=== PATIENT | female | born 1945 | race Caucasian/White ===

== ENCOUNTER → 2017-12-21 16:35 | Outpatient (CLI) | payer MEDICARE, OTHER, SELFPAY ==
--- NOTE | 2017-12-21 16:44 | XR_ITS ---
XR chest 2V HISTORY: Persistent cough ORDERING PHYSICIAN: Nallely Hankins PATIENT AGE: 72 years COMPARISON: 05/14/2014 FINDINGS: The cardiomediastinal silhouette and pulmonary vascularity are within normal limits. The lungs are clear without infiltrates, suspicious nodules, or pleural effusions. No acute bony abnormalities. IMPRESSION: Negative chest, no acute finding
== END ==
PROVIDERS: PCP Internal Medicine Adolescent Medicine; Visit Provider Nurse Practitioner Family
DX: R05 Cough (principal)
CPT/HCPCS: 71046

== ENCOUNTER → 2018-06-15 11:58 | Outpatient (CLI) | payer MEDICARE, OTHER, SELFPAY ==
[2018-06-15 14:07] LABS: Blood Urea Nitrogen 20 mg/dL (7-18); Creatinine,Serum 0.58 mg/dL (0.55-1.02); Estimated Glomerular Filt Rate 103 ml/min (>60); GFR (African American) 124 ML/MIN (>60)
== END ==
PROVIDERS: PCP Internal Medicine Adolescent Medicine; Visit Provider Nurse Practitioner Family
DX: R29.6 Repeated falls (principal)
CPT/HCPCS: 36415; 82565; 84520

== ENCOUNTER → 2018-06-21 09:15 | Outpatient (CLI) | payer MEDICARE, OTHER, SELFPAY ==
--- NOTE | 2018-06-21 09:25 | CI_ITS ---
Cerebrovascular Exam IMPRESSIONS 1. The bilateral vertebral arteries are patent with normal antegrade flow. 2. Study suggests less than 20% stenosis involving the right internal carotid artery and the left internal carotid artery. History: Transient ischemic attack. Carotid duplex study. Complete study and Doppler flow study including spectral analysis, color and bower scale imaging. Location: Vascular laboratory. Patient status: Outpatient. Tables: Arterial flow: + +--------+--------+ Location V sys V ed + +--------+--------+ Right CCA - proximal 85.2cm/s 23.7cm/s + +--------+--------+ Right CCA - distal 76.1cm/s 23.7cm/s + +--------+--------+ Right ECA 60.9cm/s -------- + +--------+--------+ Right ICA - proximal 53.8cm/s 20.3cm/s + +--------+--------+ Right ICA - mid 99.2cm/s 34.2cm/s + +--------+--------+ Right ICA - distal 91.5cm/s 32.1cm/s + +--------+--------+ Right vertebral 46.2cm/s -------- + +--------+--------+ Left CCA - proximal 85cm/s 23.6cm/s + +--------+--------+ Left CCA - distal 81.5cm/s 21.1cm/s + +--------+--------+ Left ECA 75.5cm/s -------- + +--------+--------+ Left ICA - proximal 52.1cm/s 24.6cm/s + +--------+--------+ Left ICA - mid 74.6cm/s 32.9cm/s + +--------+--------+ Left ICA - distal 63.1cm/s 24.6cm/s + +--------+--------+ Left vertebral 49.1cm/s -------- + +--------+--------+ Velocity ratios: + + + + + + Right, V sys Right, V ed Left, V sys Left, V ed + + + + + + Max ICA/dist CCA 1.3 1.44 0.92 1.56 + + + + + + (Report amended ) Electronically signed by: Wilbur Tomas [id number]
--- NOTE | 2018-06-21 09:56 | MR_ITS ---
MR head/brain wo/w con HISTORY: Headache with left leg weakness, history of stroke ITS.REASON: TIA, LOSS OF BALANCE ORDERING PHYSICIAN: Nallely Hankins PATIENT AGE: 72 years Comparison: 07/02/2016 TECHNIQUE: Standard multiplanar multiecho sequences are performed without and with gadolinium enhancement. FINDINGS: No midline shift, mass effect, intracranial hemorrhage, or hydrocephalus is evident. Encephalomalacic changes are present in the right parietal occipital temporal junction consistent with an old area of infarction. No evidence of acute infarction. No enhancing lesions. No intra or extra-axial mass is evident. There are a few periventricular and subcortical T2 white matter hyperintensities consistent with ischemic gliotic change from microvascular disease. There is a 6 mm T2 white matter hyperintensity in the left prior lobe deep white matter. This shows slight increased diffusion signal but also show slight increase ADC signal with some minimal contrast enhancement suggesting a late subacute small area of infarction The cerebellopontine angles, cerebellum, and brainstem are unremarkable. There is a small cystic area in the left subinsular region at 8 mm consistent with either a dilated perivascular space or a choroidal fissure cyst or possibly old lacunar infarction. The pituitary and optic chiasm have an unremarkable appearance. No mastoid effusion or sinus air-fluid level is evident. IMPRESSION: 1. Chronic ischemic changes with encephalomalacia change in the right parietal occipital temporal junction suggesting old infarction. 2. Suspect a small late subacute white matter infarction in the left parietal lobe. 3. No acute findings. 1.
--- NOTE | 2018-06-21 11:03 | HMH.ITSHM ---
JUAN FCORT ELLISON
== END ==
PROVIDERS: Family Provider Internal Medicine Adolescent Medicine; PCP Internal Medicine Adolescent Medicine; Visit Provider Nurse Practitioner Family
DX: G45.8 Other transient cerebral ischemic attacks and related syndromes (principal); R26.89 Other abnormalities of gait and mobility; R29.898 Other symptoms and signs involving the musculoskeletal system
CPT/HCPCS: 70553; 93880; A9576

== ENCOUNTER 2018-11-03 10:30 | Outpatient (RCR) | payer MEDICARE, OTHER, SELFPAY | END 2018-11-03 10:35 | disposition home or self-care (01) | LOC: PT 10:30 | PROVIDERS: Visit Provider Internal Medicine Adolescent Medicine | DX: R26.81 Unsteadiness on feet (principal); M25.512 Pain in left shoulder; M75.102 Unspecified rotator cuff tear or rupture of left shoulder, not specified as traumatic; W19.XXXA Unspecified fall, initial encounter | CPT/HCPCS: 97010; 97014; 97110; 97112; 97163; 97535; G0283 ==

== ENCOUNTER → 2019-03-20 11:18 | Outpatient (CLI) | payer MEDICARE, OTHER, SELFPAY ==
--- NOTE | 2019-03-20 11:38 | XR_ITS ---
EXAM: XR lumbar spine min 4V HISTORY: ITS.REASON: MECHANICAL LOW BACK PAIN ORDERING PHYSICIAN: Adeel Gomez MD PATIENT AGE: 73 years COMPARISON: None FINDINGS: Normal alignment. No fracture or dislocation. No lytic or blastic change. Bone density is mildly osteopenia. Vertebral body heights are normal. There is severe loss of disc space height with vacuum disc changes L2-3 through L4-5 disc levels with small marginal spurs. There is narrowing of facet joint spaces bilaterally at L4-5 and L5-S1 greater on the right side. There is a post cholecystectomy clip in right upper quadrant of the abdomen. IMPRESSION: No acute process. Levels of chronic degenerative disc disease as described. L4-5 bilateral arthrosis greater on the right.
--- NOTE | 2019-03-20 11:38 | XR_ITS ---
XR hip LT 2-3V w/pelvis HISTORY: ITS.REASON: LT HIP PAIN ORDERING PHYSICIAN: Adeel Gomez MD PATIENT AGE: 73 years COMPARISON: None FINDINGS: Moderate intensity, alignment and joint spaces are normal. There is a 5 mm spur from the inferior left greater trochanteric area. There is no acute fracture. There are pelvic phleboliths. Also noted is severe loss of disc space height with a left-sided spur at L4-L5 lumbar level. IMPRESSION: No acute process. Left femoral greater trochanteric spur. L4-5 chronic intervertebral osteochondrosis.
== END ==
PROVIDERS: PCP Internal Medicine Adolescent Medicine; Visit Provider Internal Medicine Adolescent Medicine
DX: M54.5 Low back pain (principal); M25.552 Pain in left hip
CPT/HCPCS: 72110; 73502

== ENCOUNTER → 2019-04-18 11:27 | Outpatient (CLI) | payer MEDICARE, OTHER, SELFPAY ==
--- NOTE | 2019-04-18 11:31 | MM_ITS ---
MM Dig screening mamm BI w/CAD ORDERING PHYSICIAN : Adeel Gomez MD PATIENT AGE: 73 years GENDER: Female COMPARISON: March 2014, June 2016, January 2013 INDICATION: Routine screening mammogram 73-year-old. No hormones no new complaints Family history. Paternal aunt with breast cancer postmenopausal TECHNIQUE: Standard CC and MLO images were obtained. R2 CAD reviewed. FINDINGS: Minimal residual [place] plantar elements with Generalized fatty replacement. No focal area of concern. No dominant or suspicious mass. No suspicious calcifications. . Bilateral follow-up in one year adequate . IMPRESSION: Stable bilateral mammogram. No new areas of concern. Lower density breast. BI-RADS Category: 1 Negative RECOMMENDED FOLLOW-UP: 1YR 1 YEAR FOLLOW-UP (A letter has been sent to the patient regarding results of the study.)
== END ==
PROVIDERS: PCP Internal Medicine Adolescent Medicine; Visit Provider Internal Medicine Adolescent Medicine
DX: Z12.31 Encounter for screening mammogram for malignant neoplasm of breast (principal)
CPT/HCPCS: 77067

== ENCOUNTER → 2019-05-04 09:44 | Outpatient (CLI) | payer MEDICARE, OTHER, SELFPAY ==
[2019-05-04 12:35] LABS: Ferritin 24 ng/mL (8-388)
== END ==
PROVIDERS: Visit Provider Nurse Practitioner Family
DX: G47.33 Obstructive sleep apnea (adult) (pediatric) (principal); E83.10 Disorder of iron metabolism, unspecified; G25.81 Restless legs syndrome
CPT/HCPCS: 36415; 82728; 94762

== ENCOUNTER → 2019-05-04 10:09 | Outpatient (CLI) | payer MEDICARE, OTHER, SELFPAY | PROVIDERS: Visit Provider Nurse Practitioner Family | DX: E83.10 Disorder of iron metabolism, unspecified (principal) | CPT/HCPCS: 36415; 82728 ==

== ENCOUNTER 2019-11-01 10:00 | Outpatient (RCR) | payer MEDICARE, OTHER, SELFPAY | END 2019-11-01 10:05 | disposition home or self-care (01) | LOC: PT 10:00 | PROVIDERS: Visit Provider Psychiatry & Neurology Neurology | DX: R26.81 Unsteadiness on feet (principal); M48.00 Spinal stenosis, site unspecified | CPT/HCPCS: 97010; 97014; 97110; 97112; 97163; 97164; G0283 ==

== ENCOUNTER → 2019-12-02 08:31 | Outpatient (CLI) | payer MEDICARE, OTHER, SELFPAY ==
[2019-12-02 09:56] LABS: Basophils # 0.1 K/mm3 (0-0.2); Basophils % 1.3 % (0.1-2.0); Eosinophils # 0.1 K/mm3 (0.0-0.4); Eosinophils % 2.3 % (0.1-12.0); Hematocrit 42.2 % (37.0-47.0); Lymphocytes # 1.2 K/mm3 (0.7-4.5); Lymphocytes % 27.1 % (10-50); Mean Corpuscular HGB Conc 33.1 g/dL (31.8-35.4); Mean Corpuscular Hemoglobin 29.9 pg (27.0-31.2); Mean Corpuscular Volume 90.3 fl (81-99); Mean Platelet Volume 7.6 fl (7.4-10.4); Monocytes # 0.3 K/mm3 (0.1-1.0); Monocytes % 7.2 % (1.7-9.3); Neutrophils # 2.7 K/mm3 (1.8-7.8); Neutrophils % 62.2 % (37.0-80.0); Platelet Count 262 K/mm3 (142-424); Red Blood Count 4.68 M/mm3 (4.20-5.40); Red Cell Distribution Width 12.7 % (11.5-17.5); White Blood Count 4.3 K/mm3 (4.8-10.8)
[2019-12-02 11:18] LABS: Alanine Aminotransferase 19 U/L (12-78); Albumin Level 4.2 g/dl (3.5-5.0); Albumin/Globulin Ratio 1.6 (1.1-1.8); Alkaline Phosphatase 72 U/L (38-126); Anion Gap 11.4 mEq/L (5-15); Aspartate Amino Transferase 25 U/L (14-36); Bilirubin,Total 0.5 mg/dl (0.2-1.3); Blood Urea Nitrogen 18 mg/dl (7-17); Calcium 9.2 mg/dl (8.4-10.2); Carbon Dioxide 26 mmol/L (22.0-30.0); Chloride 105 mmol/L (98-107); Cholesterol 151 mg/dl (140-200); Estimated Glomerular Filt Rate 121 ml/min (>60); GFR (African American) 147 ML/MIN (>60); Globulin 2.6 g/dL (1.3-3.2); Glucose 93 mg/dl (74-100); HDL Cholesterol 51 mg/dl (40-60); Potassium 4.4 mmoL/L (3.5-5.1); Sodium 138 mmol/L (136-145); Total Protein,Serum 6.8 g/dl (6.3-8.2); Triglycerides 67 mg/dl (30-150); VLDL Cholesterol 13 mg/dL (0-40)
[2019-12-02 11:29] LABS: Direct LDL Cholesterol 82.36 mg/dL (100-129)
== END ==
PROVIDERS: Visit Provider Internal Medicine Adolescent Medicine
DX: E78.5 Hyperlipidemia, unspecified (principal)
CPT/HCPCS: 36415; 80053; 80061; 85025

== ENCOUNTER → 2019-12-18 08:52 | Outpatient (CLI) | payer MEDICARE, OTHER, SELFPAY ==
--- NOTE | 2019-12-18 09:03 | CT_ITS ---
PROCEDURE: CT ABDOMEN PELVIS W CON CLINICAL INDICATION: RLQ PAIN Right lower quadrant pain COMPARISON: CXR2V XR chest 2V from 12/21/2017 TECHNIQUE: IV Contrast: 75ML OPTIRAY 350 Oral Contrast none Axial images obtained with sagittal and coronal reformats. All CT scans at the facility use one or more dose reduction, viz: automated exposure control, ma/kV adjustment per patient size (including targeted exams where dose is matched to indication, i.e. head), or iterative reconstruction technique. FINDINGS: LOWER THORAX: No acute finding. Nonspecific calcification is noted between the right left atrium. ABDOMEN & PELVIS: There has been a prior cholecystectomy. The liver, spleen, adrenal glands, pancreas, and kidneys have an unremarkable appearance. No intestinal obstruction or free air. No evidence of appendicitis or diverticulitis. There is lobular increased soft tissue density along the posterior and right aspect of the retroverted uterus. This area measures approximately 4 cm suggesting a fibroid. There are degenerative changes in the lumbar spine. IMPRESSION: 1. No acute finding. 2. Fibroid involvement of the uterus which may be confirmed with ultrasound Dictated by: Wilbur Tomas MD 12/19/2019 10:26 Electronically signed by Wilbur Tomas MD in [place] 12/19/2019 10:26
[2019-12-18 09:23] LABS: Blood Urea Nitrogen 18 mg/dl (7-17)
[2019-12-18 09:24] LABS: Estimated Glomerular Filt Rate 98 ml/min (>60); GFR (African American) 119 ML/MIN (>60)
== END ==
PROVIDERS: PCP Internal Medicine Adolescent Medicine; Visit Provider Obstetrics & Gynecology Gynecology
DX: R10.31 Right lower quadrant pain (principal)
CPT/HCPCS: 36415; 74177; 82565; 84520; Q9967

== ENCOUNTER → 2020-09-13 08:22 | Outpatient (CLI) | payer MEDICARE, OTHER, SELFPAY ==
[2020-09-13 10:12] LABS: Chloride 105 mmol/L (98-107); Sodium 141 mmol/L (136-145)
[2020-09-13 10:13] LABS: Potassium 4.3 mmoL/L (3.5-5.1)
[2020-09-13 10:15] LABS: Alanine Aminotransferase 22 U/L (12-78); Alkaline Phosphatase 87 U/L (38-126); Anion Gap 11.3 mEq/L (5-15); Aspartate Amino Transferase 29 U/L (14-36); Bilirubin,Total 0.7 mg/dl (0.2-1.3); Blood Urea Nitrogen 23 mg/dl (7-17); Carbon Dioxide 29 mmol/L (22.0-30.0); Cholesterol 162 mg/dl (140-200); Estimated Glomerular Filt Rate 82 ml/min (>60); GFR (African American) 99 ML/MIN (>60); Triglycerides 79 mg/dl (30-150); VLDL Cholesterol 16 mg/dL (0-40)
[2020-09-13 10:16] LABS: Albumin Level 4.3 g/dl (3.5-5.0); Albumin/Globulin Ratio 1.5 (1.1-1.8); Calcium 9.5 mg/dl (8.4-10.2); Chol/HDL Ratio 3.1 (1-3.5); Globulin 2.8 g/dL (1.3-3.2); Glucose 97 mg/dl (74-100); HDL Cholesterol 53 mg/dl (40-60); Total Protein,Serum 7.1 g/dl (6.3-8.2)
[2020-09-13 10:27] LABS: Direct LDL Cholesterol 83.17 mg/dL (100-129)
== END ==
PROVIDERS: Visit Provider Nurse Practitioner Family
DX: Z00.00 Encounter for general adult medical examination without abnormal findings (principal); E78.5 Hyperlipidemia, unspecified
CPT/HCPCS: 36415; 80053; 80061

== ENCOUNTER → 2021-01-08 07:54 | Outpatient (CLI) | payer MEDICARE, OTHER, SELFPAY ==
[2021-01-08 08:56] LABS: Chloride 105 mmol/L (98-107)
[2021-01-08 08:57] LABS: Potassium 4.5 mmoL/L (3.5-5.1); Sodium 141 mmol/L (136-145)
[2021-01-08 08:59] LABS: Alanine Aminotransferase 25 U/L (12-78); Albumin Level 4.3 g/dl (3.5-5.0); Albumin/Globulin Ratio 1.6 (1.1-1.8); Alkaline Phosphatase 82 U/L (38-126); Anion Gap 12.5 mEq/L (5-15); Aspartate Amino Transferase 34 U/L (14-36); Bilirubin,Total 0.8 mg/dl (0.2-1.3); Blood Urea Nitrogen 25 mg/dl (7-17); Carbon Dioxide 28 mmol/L (22.0-30.0); Estimated Glomerular Filt Rate 82 ml/min (>60); GFR (African American) 99 ML/MIN (>60); Globulin 2.7 g/dL (1.3-3.2)
[2021-01-08 09:00] LABS: Calcium 9.3 mg/dl (8.4-10.2); Chol/HDL Ratio 3.2 (1-3.5); Cholesterol 184 mg/dl (140-200); Glucose 93 mg/dl (74-100); HDL Cholesterol 57 mg/dl (40-60); Triglycerides 72 mg/dl (30-150); VLDL Cholesterol 14 mg/dL (0-40)
[2021-01-08 09:11] LABS: Direct LDL Cholesterol 99.86 mg/dL (100-129)
[2021-01-08 09:30] LABS: Thyroid Stimulating Hormone 2.88 uIU/mL (0.465-4.68)
[2021-01-08 09:59] LABS: Ferritin 44.2 ng/ml (11.1-264)
== END ==
PROVIDERS: Nurse Practitioner Family; Visit Provider Nurse Practitioner Family
DX: E83.10 Disorder of iron metabolism, unspecified (principal); G25.81 Restless legs syndrome; E04.1 Nontoxic single thyroid nodule; E78.5 Hyperlipidemia, unspecified
CPT/HCPCS: 36415; 80053; 80061; 82728; 84443

== ENCOUNTER → 2021-02-03 11:54 | Outpatient (CLI) | payer MEDICARE, OTHER, SELFPAY ==
--- NOTE | 2021-02-03 12:44 | US_ITS ---
PROCEDURE: US THYROID CLINICAL INDICATION: THYROID NODULE COMPARISON: No exams were available for comparison FINDINGS: Right lobe: 4 x 1.5 x 1.8 centimeters Left lobe: 3.6 x 1 x 1.1 centimeters Isthmus: Unremarkable Additional findings: Bilateral nodules and cysts are noted. The solid nodules, demonstrates hypoechogenicity and well-defined margins, largest on the left measuring 1 x 0.7 x 0.6 centimeters. The thyroid gland is otherwise unremarkable in echogenicity and size. Vascularity is within normal limits. IMPRESSION: Bilateral thyroid nodules measuring up to 1 centimeter. Dictated by: Wendi Oro 02/03/2021 15:36 Wendi Oro in [facility] 02/03/2021 15:36
== END ==
PROVIDERS: PCP Internal Medicine Adolescent Medicine; Visit Provider Nurse Practitioner Family
DX: Z20.822 Contact with and (suspected) exposure to COVID-19 (principal); E04.1 Nontoxic single thyroid nodule
CPT/HCPCS: 76536; U0003

== ENCOUNTER 2021-02-04 07:07 | Day surgery (SDC) | payer MEDICARE, OTHER, SELFPAY ==
[2021-01-29 09:43] VITALS: BMI 24.5
[2021-02-04 07:21] VITALS: BP 128/74; PULSE 75; RESP 20; TEMP 36.3; O2SAT 95
[2021-02-04 08:05] VITALS: BP 132/72; PULSE 64; RESP 16; O2SAT 97
[2021-02-04 08:10] VITALS: BP 145/76; PULSE 68; RESP 16; O2SAT 99
[2021-02-04 08:15] VITALS: BP 141/69; PULSE 69; RESP 16; O2SAT 99
[2021-02-04 08:20] VITALS: BP 129/66; PULSE 67; RESP 16; O2SAT 99
[2021-02-04 08:25] VITALS: BP 145/89; PULSE 82; RESP 16; TEMP 36.6; O2SAT 96
== END 2021-02-04 08:29 | disposition home or self-care (01) ==
PROVIDERS: PCP Internal Medicine Adolescent Medicine; Visit Provider Ophthalmology
DX: H25.812 Combined forms of age-related cataract, left eye (principal); Z96.1 Presence of intraocular lens; Z79.899 Other long term (current) drug therapy; Z80.9 Family history of malignant neoplasm, unspecified; F41.9 Anxiety disorder, unspecified; M19.90 Unspecified osteoarthritis, unspecified site; J44.9 Chronic obstructive pulmonary disease, unspecified; F32.9 Major depressive disorder, single episode, unspecified; Z86.73 Personal history of transient ischemic attack (TIA), and cerebral infarction without residual deficits
CPT/HCPCS: 66984; V2632

== ENCOUNTER → 2021-06-11 12:58 | Outpatient (CLI) | payer MEDICARE, OTHER, SELFPAY ==
--- NOTE | 2021-06-11 13:06 | US_ITS ---
PROCEDURE: US TRANSVAGINAL CLINICAL INDICATION: RT LOWER QUAD PAIN, COMPARISON: No exams were available for comparison FINDINGS: UTERUS: 6cm x 5cmx 3cm with a combined endometrial thickness of 3.5mm. There is a 3 cm fibroid fundus of the uterus. The uterus is retroverted LEFT OVARY: [id number] with a volume of 0.3ml. RIGHT OVARY: [id number] with a volume of 0.7ml. No cul-de-sac fluid IMPRESSION: Retroverted uterus containing a 3 cm fibroid at the fundus Dictated by: Wiblur Tomas MD 06/11/2021 17:44 Wilbur Tomas MD in [place] 06/11/2021 17:44
== END ==
PROVIDERS: PCP Internal Medicine Adolescent Medicine; Visit Provider Nurse Practitioner Family
DX: R10.31 Right lower quadrant pain (principal); N94.10 Unspecified dyspareunia
CPT/HCPCS: 76830

== ENCOUNTER → 2021-06-12 10:56 | Outpatient (CLI) | payer MEDICARE, OTHER, SELFPAY ==
--- NOTE | 2021-06-12 11:06 | XR_ITS ---
PROCEDURE: XR HAND RT MIN 3V CLINICAL INDICATION: PAIN OF RT THUMB COMPARISON: CR HANDR3 HAND-RT 3 VIEWS from 10/26/2012 CR HANDL3 HAND-LT-3 VIEWS from 10/26/2012 FINDINGS: No fracture or dislocation. No lytic or blastic change. There is normal mineralization. The joint spaces are well-preserved. No significant degenerative/arthritic changes. No erosive changes evident. Other findings:None. IMPRESSION: No acute findings. Dictated by: Wilbur Tomas MD 06/12/2021 14:35 Wilbur Tomas MD in [facility] 06/12/2021 14:35
[2021-06-12 11:40] LABS: Chloride 105 mmol/L (98-107)
[2021-06-12 11:41] LABS: Potassium 4.5 mmoL/L (3.5-5.1); Sodium 142 mmol/L (136-145)
[2021-06-12 11:43] LABS: Alanine Aminotransferase 28 U/L (12-78); Alkaline Phosphatase 87 U/L (38-126); Anion Gap 14.5 mEq/L (5-15); Aspartate Amino Transferase 34 U/L (14-36); Bilirubin,Total 0.3 mg/dl (0.2-1.3); Blood Urea Nitrogen 21 mg/dl (7-17); Carbon Dioxide 27 mmol/L (22.0-30.0); Estimated Glomerular Filt Rate 82 ml/min (>60); GFR (African American) 99 ML/MIN (>60)
[2021-06-12 11:44] LABS: Albumin Level 3.8 g/dl (3.5-5.0); Albumin/Globulin Ratio 1.5 (1.1-1.8); Calcium 9.1 mg/dl (8.4-10.2); Globulin 2.6 g/dL (1.3-3.2); Glucose 91 mg/dl (74-100); Iron 80 ug/dL (37-170); Total Protein,Serum 6.4 g/dl (6.3-8.2)
[2021-06-12 11:53] LABS: Total Iron Binding Capacity 294 ug/dL (265-497)
[2021-06-12 12:01] LABS: Free T4 (Free Thyroxine) 0.98 ng/dl (0.78-2.19)
[2021-06-12 12:15] LABS: Thyroid Stimulating Hormone 2.45 uIU/mL (0.465-4.68)
[2021-06-12 12:19] LABS: Ferritin 72.2 ng/ml (11.1-264)
[2021-06-12 12:36] LABS: Basophils # 0.1 K/mm3 (0-0.2); Basophils % 1.2 % (0.1-2.0); Eosinophils # 0.2 K/mm3 (0.0-0.4); Eosinophils % 3.9 % (0.1-12.0); Hematocrit 42.8 % (37.0-47.0); Hemoglobin 14.2 g/dL (12.2-16.2); Lymphocytes # 1.2 K/mm3 (0.7-4.5); Lymphocytes % 22.7 % (10-50); Mean Corpuscular HGB Conc 33.3 g/dL (31.8-35.4); Mean Corpuscular Volume 93.1 fl (81-99); Mean Platelet Volume 7.1 fl (7.4-10.4); Monocytes # 0.4 K/mm3 (0.1-1.0); Monocytes % 7.9 % (1.7-9.3); Neutrophils # 3.3 K/mm3 (1.8-7.8); Neutrophils % 64.4 % (37.0-80.0); Platelet Count 264 K/mm3 (142-424); White Blood Count 5.2 K/mm3 (4.8-10.8)
== END ==
PROVIDERS: Visit Provider Nurse Practitioner Family
DX: E04.1 Nontoxic single thyroid nodule (principal); Z86.39 Personal history of other endocrine, nutritional and metabolic disease
CPT/HCPCS: 36415; 73130; 80053; 82728; 83540; 83550; 84439; 84443; 85025

== ENCOUNTER → 2021-07-21 09:57 | Outpatient (CLI) | payer MEDICARE, OTHER, SELFPAY ==
[2021-07-21 11:00] VITALS: PULSE 70; PULSE 77
== END ==
PROVIDERS: PCP Internal Medicine Adolescent Medicine; Visit Provider Nurse Practitioner Family
DX: R06.02 Shortness of breath (principal); R53.83 Other fatigue; G47.33 Obstructive sleep apnea (adult) (pediatric); Z87.891 Personal history of nicotine dependence
CPT/HCPCS: 94060; 94618; 94640; 94727; 94729

== ENCOUNTER → 2021-08-06 14:26 | Outpatient (CLI) | payer MEDICARE, OTHER, SELFPAY ==
--- NOTE | 2021-08-06 14:30 | XR_ITS ---
PROCEDURE: XR CHEST 2V CLINICAL HISTORY: shortness of breath for exertion COMPARISON: CR CXR CHEST(2 VIEWS-NOT PORTABLE) from 05/16/2014 DX CXR2V XR chest 2V from 12/21/2017 CR CXR1VP XR chest portable from 07/03/[address] ABDOMEN PELVIS W CON from 12/18/2019 FINDINGS: Prior ASD repair. Normal heart size. No evidence of CHF. The lungs are clear without infiltrates, suspicious nodules, or pleural effusions. No acute bony abnormalities. IMPRESSION: No acute findings. Dictated by: Wilbur Tomas MD 08/06/2021 15:22 Wilbur Tomas MD in [place] 08/06/2021 15:22
== END ==
PROVIDERS: PCP Internal Medicine Adolescent Medicine; Visit Provider Nurse Practitioner Family
DX: G47.33 Obstructive sleep apnea (adult) (pediatric) (principal); R06.02 Shortness of breath; R53.83 Other fatigue; Z87.891 Personal history of nicotine dependence
CPT/HCPCS: 71046; 94762

== ENCOUNTER → 2021-09-22 15:22 | Outpatient (CLI) | payer MEDICARE, OTHER, SELFPAY ==
[2021-09-22 15:51] LABS: Blood Urea Nitrogen 19 mg/dl (7-17); Estimated Glomerular Filt Rate 98 ml/min (>60); GFR (African American) 118 ML/MIN (>60)
--- NOTE | 2021-09-22 15:59 | MR_ITS ---
PROCEDURE INFORMATION: Exam: MR Lumbar Spine Without and With Contrast Exam date and time: 09/22/2021 3:59 PM Age: 76 years old Clinical indication: Prior surgery; Surgery date: 6+ months; Surgery type: Low back pain, spinal stenosis, instability when walking, left leg numbness; Additional info: Lumbago with sciatica, left side, left leg weakness TECHNIQUE: Imaging protocol: Multiplanar magnetic resonance images of the lumbar spine without and with intravenous contrast. Contrast material: PROHANCE; Contrast volume: 14 ml; Contrast route: IV; COMPARISON: DX (L SPINE OBL, LSPINE, L SPINE OBL) 03/20/2019 11:56 AM FINDINGS: Vertebrae: Lumbar vertebral body heights and alignment are within normal limits. There is multilevel degenerative disc disease and degenerative endplate change. There are hemangiomas noted at multiple levels. 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 Spinal cord: Conus medullaris is normal in appearance terminating at the level of L1. L1-L2: There is a shallow disc bulge, bilateral facet arthropathy and ligamentum flavum infolding. This results in mild central canal stenosis. The neural foramina are adequate. L2-L3: There is a shallow disc bulge, bilateral facet arthropathy and ligamentum flavum infolding. This results in mild central canal stenosis. There is moderate right neural foraminal stenosis. The left neural foramen is adequate. L3-L4: Insert broad-based. The combination of these findings results in [id number] central canal stenosis. There is moderate left and mild right neural foraminal stenosis at this level L4-L5: There is a broad-based disc bulge with focal left lateral recess disc herniation. Overall, this results in mild central canal stenosis. There is severe left lateral recess stenosis, and effacement of the traversing L5 nerve root within the left lateral recess. There is moderate left neural foraminal stenosis. There is mild right neural foraminal stenosis. L5-S1: There is a broad based disc bulge, bilateral facet arthropathy and ligamentum flavum infolding. This results in mild central canal stenosis. The neural foramina are adequate. Soft tissues: Unremarkable. Other findings: Following administration of intravenous gadolinium, there is no evidence of abnormal enhancement. IMPRESSION: 1. Multilevel lumbar spondylosis. 2. Focal disc herniation at L4/5 with severe left lateral recess stenosis. There is probable contact with the traversing L5 nerve root in the left lateral recess at this level. 3. [id number] spinal stenosis at L3/4. 4. Mild spinal stenosis at L1/2, L2/3, and L5/S1.
== END ==
PROVIDERS: PCP Internal Medicine Adolescent Medicine; Visit Provider Nurse Practitioner Family
DX: M54.42 Lumbago with sciatica, left side (principal); R15.9 Full incontinence of feces; R29.898 Other symptoms and signs involving the musculoskeletal system; G89.29 Other chronic pain
CPT/HCPCS: 36415; 72158; 76376; 82565; 84520; A9576

== ENCOUNTER → 2022-03-07 13:18 | Outpatient (CLI) | payer MEDICARE, OTHER, SELFPAY ==
--- NOTE | 2022-03-07 13:51 | XR_ITS ---
PROCEDURE INFORMATION: Exam: XR Right Knee Exam date and time: 03/07/2022 1:44 PM Age: 76 years old Clinical indication: Pain; Knee; Right; Additional info: Knee pain TECHNIQUE: Imaging protocol: XR Right knee. Views: 3 views. COMPARISON: No relevant prior studies available. FINDINGS: Bones/joints: Mild tricompartmental osteoarthritis, most pronounced at the medial tibiofemoral compartment. There is no evidence of acutely displaced skeletal fractures. There is no evidence of joint dislocation. No aggressive osseous lesions. There is no evidence of a joint effusion. Soft tissues: There is no significant soft tissue swelling. IMPRESSION: No acute skeletal pathology.
== END ==
PROVIDERS: PCP Internal Medicine Adolescent Medicine; Visit Provider Internal Medicine Adolescent Medicine
DX: M25.561 Pain in right knee (principal)
CPT/HCPCS: 73562

== ENCOUNTER → 2022-08-10 08:35 | Outpatient (CLI) | payer MEDICARE, OTHER, SELFPAY ==
--- NOTE | 2022-08-10 08:43 | MM_ITS ---
PROCEDURE INFORMATION: Exam: MG Bilateral Screening 3D Mammography Exam date and time: 08/10/2022 8:42 AM Age: 77 years old Clinical indication: Screening examination. A paternal aunt had breast cancer. TECHNIQUE: Imaging protocol: Bilateral Screening tomosynthesis and 2D mammography including computer-aided detection (CAD) when performed. Limited positioning related to mobility impairment, technologist notes history of strokes with limited mobility. COMPARISON: 1. MG DIG MAMM-SCREEN [facility] 04/18/2019 11:49 AM 2. MG DMSB DIG MAMM-SCREEN [facility] 07/09/2016 10:40 AM 3. MG DMSB DIG MAMM-SCREEN [place] 04/06/2014 10:34 AM 4. MG DMSB DIG MAMM-SCREEN [facility] 02/24/2013 4:04 PM FINDINGS: MAMMOGRAPHY: Breast composition: There are scattered areas of fibroglandular density. Mass: None. Architectural distortion: None. Calcifications: No suspicious calcifications. Asymmetric density: None. Skin thickening: None. Axillary adenopathy: None. IMPRESSION: No mammographic evidence of malignancy. Annual screening is recommended unless otherwise clinically indicated. ASSESSMENT: BI-RADS Category 1: Negative
== END ==
PROVIDERS: PCP Internal Medicine Adolescent Medicine; Visit Provider Internal Medicine Adolescent Medicine
DX: Z12.31 Encounter for screening mammogram for malignant neoplasm of breast (principal)
CPT/HCPCS: 77063; 77067

== ENCOUNTER → 2022-08-18 12:30 | Outpatient (CLI) | payer MEDICARE, OTHER, SELFPAY ==
[2022-08-18 13:04] LABS: Basophils # 0.1 K/mm3 (0-0.2); Basophils % 1.5 % (0.1-2.0); Eosinophils # 0.2 K/mm3 (0.0-0.4); Eosinophils % 3.3 % (0.1-12.0); Hematocrit 40.3 % (37.0-47.0); Hemoglobin 13.1 g/dL (12.2-16.2); Lymphocytes # 1.5 K/mm3 (0.7-4.5); Lymphocytes % 24.5 % (10-50); Mean Corpuscular HGB Conc 32.5 g/dL (31.8-35.4); Mean Corpuscular Hemoglobin 29.2 pg (27.0-31.2); Mean Corpuscular Volume 89.9 fl (81-99); Mean Platelet Volume 7.7 fl (7.4-10.4); Monocytes # 0.4 K/mm3 (0.1-1.0); Monocytes % 6.9 % (1.7-9.3); Neutrophils # 3.8 K/mm3 (1.8-7.8); Neutrophils % 63.8 % (37.0-80.0); Platelet Count 324 K/mm3 (142-424); Red Blood Count 4.48 M/mm3 (4.20-5.40); Red Cell Distribution Width 12.9 % (11.5-17.5)
[2022-08-18 13:37] LABS: Alanine Aminotransferase 22 U/L (12-78); Albumin Level 4.2 g/dl (3.5-5.0); Albumin/Globulin Ratio 1.7 (1.1-1.8); Alkaline Phosphatase 98 U/L (38-126); Aspartate Amino Transferase 28 U/L (14-36); Bilirubin,Total 0.2 mg/dl (0.2-1.3); Blood Urea Nitrogen 26 mg/dl (7-17); Calcium 9.5 mg/dl (8.4-10.2); Carbon Dioxide 28 mmol/L (22.0-30.0); Chloride 104 mmol/L (98-107); Estimated Glomerular Filt Rate 70 ml/min (>60); GFR (African American) 85 ML/MIN (>60); Globulin 2.5 g/dL (1.3-3.2); Glucose 88 mg/dl (74-100); Sodium 142 mmol/L (136-145); Total Protein,Serum 6.7 g/dl (6.3-8.2); Uric Acid 3.7 mg/dl (2.5-6.2)
[2022-08-18 13:57] LABS: 25-OH Vitamin D, Total 27.9 ng/mL (30-100)
[2022-08-18 14:10] LABS: Thyroid Stimulating Hormone 1.63 uIU/mL (0.465-4.68)
[2022-08-18 14:29] LABS: Vitamin B12 657 pg/mL (239-931)
== END ==
PROVIDERS: PCP Internal Medicine Adolescent Medicine; Visit Provider Nurse Practitioner Family
DX: R53.83 Other fatigue (principal); E55.9 Vitamin D deficiency, unspecified; L85.9 Epidermal thickening, unspecified; M79.671 Pain in right foot; M79.672 Pain in left foot
CPT/HCPCS: 36415; 80053; 82306; 82607; 84443; 84550; 85025

== ENCOUNTER 2023-04-03 09:54 | Emergency (ER) | payer MEDICARE, OTHER, SELFPAY ==
[2023-04-03 10:05] VITALS: BP 141/77; PULSE 84; RESP 18; TEMP 37; O2SAT 97; BMI 24.0
--- NOTE | 2023-04-03 10:16 | EXP.UTC ---
Discharge Plan Disposition Patient Disposition: Home, Self-Care Condition: Good Prescriptions Prescriptions: No Action buspirone 10 mg tablet 10 mg PO BID fluticasone propion-salmeterol [Advair Diskus] 250-50 mcg/dose blister with device 1 inh INHALATION BID multivitamin with iron [Daily Multiple Vitamins/Iron] Tablet 1 tab PO DAILY estradiol [Estrace] 0.01 % (0.1 mg/gram) cream 1 appful VAGINAL DAILY Qty: 42.5 3RF vortioxetine [Trintellix] 20 mg tablet 20 mg PO ONCE atorvastatin 40 mg tablet 40 mg PO DAILY Qty: 90 hydroxyzine pamoate 25 mg capsule 25 mg PO NEEDED PRN (Reason: bp) fluticasone propionate [Flonase Allergy Relief] 50 mcg/actuation spray,suspension 1 spray INTRANASAL DAILY 90 Days Qty: 16 3RF Rx Instructions: administer into each nostril clopidogrel 75 MG tablet 75 mg PO DAILY Referrals Follow up/Referrals: Adeel Gomez MD [Primary Care Provider] - See instructions Activity Restrictions/Add. Instructions Additional Instructions/Restrictions: covid swab was sent to lab, call tomorrow for results. self isolate until test results are known to be negative No sign of a bacterial infection. Likely viral. Viruses can take 7-14 days to run their course. Nasal saline and bulb syringe or nose Poppy to remove nasal drainage to help with nasal congestion. Hard to eat, drink, sleep with nasal congestion so important to keep this cleaned out. Monitor temp. Tylenol or Motrin as needed for pain or fever Encourage fluids, water, Gatorade, Powerade, Pedialyte if infant/toddler/child Warm salt water gargles Warm fluids Sore throat lozenges Sleep elevated Humidifier/vaporizer Follow-up immediately for new or worsening symptoms or no noticeable improvement over the next 48-72 hours. Clinical Impressions Clinical Impression: Close exposure to COVID-19 virus, Upper respiratory infection Instructions Patient Instructions: DI for Viral Upper Respiratory Infection -- Adult, DI for COVID-19 (Suspected or Confirmed ), How to Care for Someone with COVID-19, Preventing the Spread of Coronavirus Discharge Instructions Discharge ED Provider: Alberto ([facility] [place] HPI General Stated complaint: Covid test, congestion, drainage, cough Mode of Arrival: Ambulatory Source of Information: Patient Limitations: No Limitations Time Seen by Provider: 04/03/23 10:16 Description of Symptoms (Recalled from Triage Doc. by RN): PATIENT REQUESTING COVID TEST D/T EXPOSURE. C/O COUGH, CONGESTION AND DRAINAGE HEENT Symptoms (Recalled from RN notes): Yes Resp Symptoms (Recalled from RN notes): Yes Skin Symptoms (Recalled from RN notes): No MS Symptoms (Recalled from RN notes): No Functional Status (Recalled from RN notes): WNL History of Present Illness Provider Complaint: 77 yr old female presents with c/o cough and congestion, pt request covid test due to testing positive Related Data Home Medications Medication Instructions Recorded Confirmed vortioxetine 20 mg tablet 20 mg PO ONCE Depression 11/19/17 10/19/22 (Trintellix) clopidogrel 75 mg tablet 75 mg PO DAILY blood clot 07/03/18 10/19/22 buspirone 10 mg tablet 10 mg PO BID Pain 09/16/18 10/19/22 atorvastatin 40 mg tablet 40 mg PO DAILY Cholesterol #90 tabs 05/04/19 10/19/22 hydroxyzine pamoate 25 mg capsule 25 mg PO NEEDED PRN bp 12/04/19 10/19/22 fluticasone 250 mcg-salmeterol 50 1 inh inhalation BID 07/16/21 10/19/22 mcg/dose blistr powdr for inhalation (Advair Diskus) multivitamin with iron (Daily 1 tab PO DAILY 08/12/22 10/19/22 Multiple Vitamins with Iron tablet) Previous Rx's Medication Instructions Recorded fluticasone propionate 50 1 spray intranasal DAILY 90 days 09/22/21 mcg/actuation nasal #16 grams spray,suspension (Flonase Allergy Relief) estradiol 0.01% (0.1 mg/gram) 1 appful vaginal DAILY #42.5 grams 10/19/22 vaginal cream (Estrace) Allergies Allergy/
[2023-04-03 10:22] VITALS: BP 141/77; PULSE 84; RESP 18; TEMP 37; O2SAT 97
[2023-04-03 10:22] LABS: Coronavirus 19, PCR Not Detected (NotDetected); Influenza A, PCR Not Detected (NotDetected); Influenza B, PCR Not Detected (NotDetected)
== END 2023-04-03 10:24 | disposition home or self-care (01) ==
PROVIDERS: Emergency Provider Nurse Practitioner Family; PCP Internal Medicine Adolescent Medicine
DX: J06.9 Acute upper respiratory infection, unspecified (principal); Z20.822 Contact with and (suspected) exposure to COVID-19; Z86.73 Personal history of transient ischemic attack (TIA), and cerebral infarction without residual deficits; Z87.891 Personal history of nicotine dependence
CPT/HCPCS: 87636; 99203; 99212; G0463

== ENCOUNTER → 2023-05-03 09:40 | Outpatient (CLI) | payer MEDICARE, OTHER, SELFPAY ==
--- NOTE | 2023-05-03 09:45 | XR_ITS ---
FINAL REPORT CLINICAL HISTORY: ACUTE COUGH COMPARISON: None FINDINGS: Two views of the chest were obtained. The heart size and pulmonary vascularity are within normal limits. The mediastinum is normal. No acute pulmonary abnormality is identified. There is no pneumothorax. The bony thorax is intact. There are postop changes in the heart. IMPRESSION: No active cardiopulmonary disease. Reviewed, Interpreted and Dictated by Sin Gutierrez III, MD Transcribed by Stacie England Authenticated and [facility]
== END ==
PROVIDERS: PCP Internal Medicine Adolescent Medicine; Visit Provider Internal Medicine Adolescent Medicine
DX: R05.2 Subacute cough (principal)
CPT/HCPCS: 71046

== ENCOUNTER 2023-07-06 07:44 | Day surgery (SDC) | payer MEDICARE, OTHER, SELFPAY ==
[2023-07-06 08:52] VITALS: BP 124/80; PULSE 73; RESP 20; TEMP 36.4; O2SAT 95; BMI 23.5
[2023-07-06 11:55] VITALS: BP 124/80; PULSE 73; RESP 20; TEMP 36.4; O2SAT 95
== END 2023-07-06 10:28 | disposition home or self-care (01) ==
PROVIDERS: PCP Internal Medicine Adolescent Medicine; Visit Provider Ophthalmology
PROC: (CPT 66821; principal; 2023-07-06 10:00)
DX: H26.40 Unspecified secondary cataract (principal)
CPT/HCPCS: 66821

== ENCOUNTER → 2023-09-06 12:55 | Outpatient (CLI) | payer MEDICARE, OTHER, SELFPAY ==
--- NOTE | 2023-09-06 12:56 | US_ITS ---
PROCEDURE: US TRANSVAGINAL CLINICAL INDICATION: pelvic pain COMPARISON: No exams were available for comparison FINDINGS: Transvaginal sonographic images of the pelvis were obtained. UTERUS: 5.6cm x 5.66cmx 2.6cm retroverted and retroflexed with a combined endometrial thickness of 6.5mm. There appears to be either mucus or blood clot within the uterine cavity. It measures up to 6 mm. Small anterior hypoechoic area measuring 4.4 mm. Fundal fibroid measuring 2.7 cm x 1.9 cm x 2.4 cm. LEFT OVARY: Not well visualized. RIGHT OVARY: Not well visualized. Both ovaries are not well visualized.. There is no fluid in the cul-de-sac. IMPRESSION: 1. Retroverted retroflexed uterus normal in shape and size. 2. There is a 2.7 cm fundal fibroid. 3. The endometrium appears thin but within the endometrial cavity there appears to be either clot or mucus. 4. The ovaries are not well visualized. 5. No fluid in the cul-de-sac. Dictated by: Devante Boudreaux MD 09/07/2023 19:10 Devante Boudreaux MD in [place] 09/07/2023 19:10
== END ==
PROVIDERS: PCP Internal Medicine Adolescent Medicine; Visit Provider Obstetrics & Gynecology
DX: R10.2 Pelvic and perineal pain (principal)
CPT/HCPCS: 76830

== ENCOUNTER 2023-12-09 13:33 | Outpatient (CLI) | payer MEDICARE, OTHER, SELFPAY ==
--- NOTE | 2023-12-09 13:47 | XR_ITS ---
FINAL REPORT CLINICAL HISTORY: LT ARM PAIN COMPARISON: None FINDINGS: LEFT SHOULDER: 3 views of the left shoulder were obtained. There is no acute fracture or dislocation. There is mild AC joint mild glenohumeral joint degenerative change. There is no soft tissue abnormality. IMPRESSION: Mild degenerative change without acute bony abnormality. Reviewed, Interpreted and Dictated by Sin Gutierrez III, MD Transcribed by Stephanie Askew Authenticated and [facility]
== END 2023-12-09 23:59 ==
PROVIDERS: PCP Internal Medicine Adolescent Medicine; Visit Provider Nurse Practitioner Family
DX: M79.602 Pain in left arm (principal)
CPT/HCPCS: 73030

== ENCOUNTER 2024-02-18 10:31 | Outpatient (CLI) | payer MEDICARE, OTHER, SELFPAY ==
[2024-02-18 10:54] LABS: Blood Urea Nitrogen 21 mg/dl (7-17); Estimated Glomerular Filt Rate 70 ml/min (>60); GFR (African American) 84 ML/MIN (>60)
== END 2024-02-18 23:59 | disposition home or self-care (01) ==
LOC: RAD 10:33
PROVIDERS: PCP Nurse Practitioner Family; Visit Provider Nurse Practitioner Family
DX: G43.701 Chronic migraine without aura, not intractable, with status migrainosus (principal)
CPT/HCPCS: 36415; 70553; 82565; 84520; A9576

== ENCOUNTER → 2024-03-07 08:04 | Day surgery (SDC) | payer MEDICARE, OTHER, SELFPAY ==
[2024-03-07 08:41] VITALS: BP 126/76; PULSE 78; RESP 18; TEMP 36.6; O2SAT 95; BMI 23.5
[2024-03-07] MEDS: PHENYLEPHRINE 2.5% OPHTH SOLN 2ML OP (08:54)
[2024-03-07] MEDS: TROPICAMIDE 1% OPTH SOLN 2ML OP (08:54)
[2024-03-07] MEDS: APRACLONIDINE 0.5% OPHTH SOLN 5ML OP (08:54)
[2024-03-07] MEDS: TETRACAINE 0.5% OPTH SOL 15ML OP (08:55)
--- NOTE | 2024-03-07 13:01 | HMH.PROCNOTE ---
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 The patient has noticed that the vision has decreased from the previous good level postop. The patient reports that he/she is having trouble reading and/or driving or that glare is giving them a problem. On exam, the patient was found to have visually significant posterior capsular opacification. The treatment options, risks and benefits were explained and the patient elected to have YAG laser capsulotomy in an attempt to improve the vision. Of note, the best corrected visual acuity is in the 23/30 or worse range by refraction or glare testing. The eye was dilated and 1 drop of 0.5% Iopidine applied. YAG laser energy was applied to the posterior capsular bag with good formation of an opening and no complications were noted. The patient will be seen back for follow up in 2 weeks
== END | disposition home or self-care (01) ==
PROVIDERS: PCP Internal Medicine Adolescent Medicine; Visit Provider Ophthalmology
PROC: (CPT 66821; principal; 2024-03-07 09:00)
DX: H26.492 Other secondary cataract, left eye (principal)
CPT/HCPCS: 66821

== ENCOUNTER 2024-05-25 07:49 | Outpatient (CLI) | payer MEDICARE, OTHER, SELFPAY ==
[2024-05-25 09:01] LABS: Albumin Level 3.9 g/dl (3.5-5.0); Chloride 108 mmol/L (98-107); Potassium 4.4 mmoL/L (3.5-5.1); Sodium 140 mmol/L (136-145)
[2024-05-25 09:04] LABS: Alanine Aminotransferase 22 U/L (12-78); Albumin/Globulin Ratio 1.4 (1.1-1.8); Alkaline Phosphatase 78 U/L (38-126); Anion Gap 8.4 mEq/L (5-15); Aspartate Amino Transferase 29 U/L (14-36); Bilirubin,Total 0.8 mg/dl (0.2-1.3); Blood Urea Nitrogen 18 mg/dl (7-17); Carbon Dioxide 28 mmol/L (22.0-30.0); Cholesterol 184 mg/dl (140-200); Estimated Glomerular Filt Rate 97 ml/min (>60); GFR (African American) 118 ML/MIN (>60); Globulin 2.8 g/dL (1.3-3.2); Total Protein,Serum 6.7 g/dl (6.3-8.2); Triglycerides 83 mg/dl (30-150); VLDL Cholesterol 17 mg/dL (0-40)
[2024-05-25 09:05] LABS: Calcium 8.9 mg/dl (8.4-10.2); Chol/HDL Ratio 3.7 (1-3.5); Glucose 98 mg/dl (74-100); HDL Cholesterol 50 mg/dl (40-60)
[2024-05-25 09:11] LABS: C-Reactive Protein 2.1 mg/L (0-4)
[2024-05-25 09:16] LABS: Direct LDL Cholesterol 100.75 mg/dL (100-129)
[2024-05-25 10:05] LABS: Erythrocyte Sedimentation Rate 17 mm/hr (0-30)
[2024-05-26 15:24] LABS: Anti-Centromere B Antibodies <0.2 AI (0.0-0.9); Anti-DNA (DS) Ab Qn <1 IU/mL (0-9); Anti-Jo-1 <0.2 AI (0.0-0.9); Anti-Smith Antibody <0.2 AI (0.0-0.9); Antichromatin Antibodies <0.2 AI (0.0-0.9); Antiscleroderma-70 Antibodies <0.2 AI (0.0-0.9); RNP Antibodies 2.4 AI (0.0-0.9); Sjogren's Anti-SS-A <0.2 AI (0.0-0.9); Sjogren's Anti-SS-B <0.2 AI (0.0-0.9)
== END 2024-05-25 23:59 | disposition home or self-care (01) ==
LOC: LAB 07:50
PROVIDERS: PCP Internal Medicine Adolescent Medicine; Visit Provider Specialist
DX: R25.1 Tremor, unspecified (principal); I95.1 Orthostatic hypotension; I49.9 Cardiac arrhythmia, unspecified; R51.0 Headache with orthostatic component, not elsewhere classified; Z86.73 Personal history of transient ischemic attack (TIA), and cerebral infarction without residual deficits; E78.5 Hyperlipidemia, unspecified; R51.9 Headache, unspecified; R42 Dizziness and giddiness; I77.9 Disorder of arteries and arterioles, unspecified
CPT/HCPCS: 36415; 80053; 80061; 85651; 86140; 86225; 86235; 93270

== ENCOUNTER 2024-05-30 14:37 | Outpatient (CLI) | payer MEDICARE, OTHER, SELFPAY ==
--- NOTE | 2024-05-30 14:38 | CA_ITS ---
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: Tammi Posadas, RCS, RVS Ht: 5 ft 7 in Wt: 152lbs BSA: 1.80 BP: 126/82 mmHg Indications: CVA-2019, H/O PFO with closure, Cardiac arrythmia 2D Dimensions Aortic Root 2.23 cm LA Volume 44.10 mL Left Atrium 2.88 cm LA Volume Index 24.765284 mL/m2 (M/F) 16-34 RVID Base (AP4) 3.05 cm (M/F) 2.5-4.1 EF AP4 46.50 % LVOT 1.86 cm (M/F) 1.5-2.5 GL Strain -23.3 % M-Mode Dimensions RVDd 2.91 cm (0.9-2.6) LVDd 4.02 cm (3.5-5.7) Ao Diam 2.93 cm (2.0-3.7) LVDs 2.38 cm (3.5-5.7) IVSd 1.00 cm (0.6-1.1) PWd 0.90 cm (0.6-1.1) EF (Teich) 72.20% EPSs 0.71 cm FS 40.80% EDV (Teich) 70.80 mL TAPSE 3.09 (<1.7) ESV (Teich) 19.70 mL LV Diastology E Decel Time 169 (160-240 msec) E/A Ratio 0.83 MED E' 22.8 (>= 7 cm/sec) MED A' 36.30 cm/s E'/MED E' Ratio 3.04 (<= 14) LAT E' 20.7 (>= 10 cm/sec) LAT A' 40.50 cm/s E/LAT E' Ratio 3.35 (<= 14) Aortic Valve LVOT Max 105.0 (70-110 cm/s) LVOT VTI 20.33 cm Mitral Valve MV E Max Sandro. 69.0 (40-130 cm/s) MV A Velocity 84.0 (40-130 cm/s) E/A Ratio 0.83 MV Decel. Time 169 (160-240 ms) MV Mean Gr. 0.90 (<2mmHg) Tricuspid Valve TR P. Velocity 231.00 cm/s RAP Estimate 10.00 mmHg RVSP 31.30 mmHg Left Ventricle The left ventricle is normal size. Left ventricular systolic function is mildly decreased. There is increased LV wall thickness. There is mild global hypokinesis present. Grade 1 diastolic dysfunction is present. LVEF is 45%. Right Ventricle Right ventricle is mildly dilated. The right ventricular systolic function is normal. Atria The left atrium size is normal. The right atrium size is normal. s/p PFO closure. There is no evidence of residual interatrial shunt on color Doppler. Aortic Valve The aortic valve is mildly thickened. There is no aortic valvular stenosis. No aortic regurgitation is present. Mitral Valve The mitral valve is normal in structure. No evidence of mitral valve stenosis. Trace mitral regurgitation. Tricuspid Valve The tricuspid valve leaflets are thin and pliable. Mild tricuspid regurgitation. RVSP is 20-25 mmHg. Pulmonic Valve The pulmonary valve is normal in structure. Trace pulmonic regurgitation. Great Vessels The aortic root is normal in size. The ascending aorta is normal in size. IVC is normal in size and collapses >50% with inspiration. Pericardium There is no pericardial effusion. Other Information Study Quality: Fair Conclusion Mildly reduced LV systolic function (LVEF 45%). Mild RV dilation with normal RV function. Mild TR. s/p PFO closure. There is no evidence of residual interatrial shunt on color Doppler. Electronically signed by : Brisa Welsh MD 06/06/2024 11:33:03
== END 2024-05-30 23:59 | disposition home or self-care (01) ==
LOC: RT 14:38
PROVIDERS: PCP Internal Medicine Adolescent Medicine; Visit Provider Specialist
DX: Q21.12 Patent foramen ovale (principal); Z98.890 Other specified postprocedural states; R42 Dizziness and giddiness; Z86.73 Personal history of transient ischemic attack (TIA), and cerebral infarction without residual deficits; I77.9 Disorder of arteries and arterioles, unspecified; E78.5 Hyperlipidemia, unspecified
CPT/HCPCS: 93306

== ENCOUNTER 2024-06-07 11:05 | Outpatient (CLI) | payer MEDICARE, OTHER, SELFPAY | END 2024-06-07 23:59 | disposition home or self-care (01) | LOC: RT 11:14 | PROVIDERS: PCP Internal Medicine Adolescent Medicine; Visit Provider Specialist | DX: J44.9 Chronic obstructive pulmonary disease, unspecified (principal) | CPT/HCPCS: 94762 ==

== ENCOUNTER 2024-06-13 08:22 | Day surgery (SDC) | payer MEDICARE, OTHER, SELFPAY ==
[2024-06-13] VITALS (13 sets, daily range): BP systolic 81–152; BP diastolic 49–86; PULSE 56–75; RESP 16–20; TEMP 37; O2SAT 90–99; BMI 23.6
--- NOTE | 2024-06-13 07:03 | IR_ITS ---
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 COMPLICATIONS NONE Estimated Blood Loss: LESS THAN 10 ML TECHNIQUE One percent lidocaine used to anesthetize the right anterior aspect of the wrist. The right radial artery was accessed via the Seldinger technique. A 6 Congolese sheath was placed in the right radial artery. 2.5 mg of Verapamil, 800 mcg of nitroglycerin, 1mg Lidocaine and 5000 U Heparin were given through the arterial sheath. The papa catheter was also used to perform left heart catheterization, left ventriculogram and selective coronary angiogram. At the end of the procedure the sheath was removed good hemostasis was achieved using Traclet band, patient was transferred to the postop holding area in stable condition. ANGIOGRAPHIC RESULTS The left main artery Normal The left anterior descending artery Normal The circumflex artery Normal The right coronary artery Normal The VALE ventriculogram reveals Normal 65 to 70% The left ventricular end-diastolic pressure Elevated at 20 mmHg IMPRESSION Normal coronary arteries Normal ejection fraction to slightly hyperdynamic Slightly elevated LVEDP PLAN 1. Medical management Electronically signed by : Dean Peoples MD 06/13/2024 13:06:16
[2024-06-13 09:17] LABS: Basophils # 0.1 K/mm3 (0-0.2); Basophils % 1.7 % (0.1-2.0); Chloride 108 mmol/L (98-107); Eosinophils # 0.1 K/mm3 (0.0-0.4); Eosinophils % 2.7 % (0.1-12.0); Hematocrit 49.1 % (37.0-47.0); Hemoglobin 15.8 g/dL (12.2-16.2); Lymphocytes # 1.4 K/mm3 (0.7-4.5); Lymphocytes % 27.1 % (10-50); Mean Corpuscular HGB Conc 32.2 g/dL (31.8-35.4); Mean Corpuscular Hemoglobin 30.2 pg (27.0-31.2); Mean Platelet Volume 7.2 fl (7.4-10.4); Monocytes # 0.4 K/mm3 (0.1-1.0); Monocytes % 6.9 % (1.7-9.3); Neutrophils # 3.2 K/mm3 (1.8-7.8); Neutrophils % 61.6 % (37.0-80.0); Platelet Count 292 K/mm3 (142-424); Red Blood Count 5.23 M/mm3 (4.20-5.40); Red Cell Distribution Width 12.7 % (11.5-17.5); Sodium 141 mmol/L (136-145); White Blood Count 5.1 K/mm3 (4.8-10.8)
[2024-06-13 09:19] LABS: Blood Urea Nitrogen 19 mg/dl (7-17); Creatinine Clearance Estimated 52 mL/min (50-200); Estimated Glomerular Filt Rate 81 ml/min (>60); GFR (African American) 98 ML/MIN (>60)
[2024-06-13 09:20] LABS: Carbon Dioxide 29 mmol/L (22.0-30.0); Glucose 94 mg/dl (74-100)
[2024-06-13] MEDS: diphenhydrAMINE 50MG/ML VIAL 50 MG IV (10:51)
[2024-06-13] MEDS: VERAPAMIL 2.5MG/ML 2ML VIAL 2.5 MG IV (10:51)
[2024-06-13] MEDS: HEPARIN 1,000 UNITS/500ML NS (CATH LAB) 3000 UNIT IV (10:51)
[2024-06-13] MEDS: NITROGLYCERIN 800MCG/8ML SYR (CATH LAB) 800 MCG IA (10:52)
[2024-06-13] MEDS: HEPARIN 1,000 UNITS/ML 10ML VIAL (CATH LAB) 10000 UNIT IV (10:52)
[2024-06-13] MEDS: 0.9 % SODIUM CHLORIDE 500 ML 25 ML IV (10:52)
[2024-06-13] MEDS: LIDOCAINE 1% 10ML MDV 20 ML IJ (10:52)
[2024-06-13] MEDS: MIDAZOLAM HCL 1MG/1ML 5ML VIAL 1 MG IV (11:11)
[2024-06-13] MEDS: FENTANYL 100MCG/2ML VIAL 50 MCG IV (11:11)
[2024-06-13] MEDS: IOPAMIDOL-370 (76%);100ML BOTTLE 50 ML IV (14:53)
== END 2024-06-13 14:22 | disposition home or self-care (01) ==
PROVIDERS: PCP Internal Medicine Adolescent Medicine; Visit Provider Internal Medicine
DX: I42.8 Other cardiomyopathies (principal); R07.89 Other chest pain; R06.09 Other forms of dyspnea; I77.9 Disorder of arteries and arterioles, unspecified; I48.91 Unspecified atrial fibrillation; I50.20 Unspecified systolic (congestive) heart failure; I11.0 Hypertensive heart disease with heart failure; Z79.899 Other long term (current) drug therapy; Q21.12 Patent foramen ovale; G47.33 Obstructive sleep apnea (adult) (pediatric); J44.9 Chronic obstructive pulmonary disease, unspecified; I65.23 Occlusion and stenosis of bilateral carotid arteries
CPT/HCPCS: 80048; 85025; 93458; 99152; C1725; C1769; J1200; J1644; J2250; J3010; Q9967

== ENCOUNTER → 2024-07-02 21:48 | Outpatient (CLI) | payer MEDICARE, OTHER, SELFPAY | LOC: SL 21:51 | PROVIDERS: PCP Internal Medicine Adolescent Medicine; Visit Provider Specialist | DX: G47.33 Obstructive sleep apnea (adult) (pediatric) (principal) | CPT/HCPCS: 95810 ==

== ENCOUNTER 2024-07-04 12:40 | Outpatient (CLI) | payer MEDICARE, OTHER, SELFPAY ==
[2024-07-04 13:45] LABS: Blood Urea Nitrogen 20 mg/dl (7-17); Calcium 9.5 mg/dl (8.4-10.2); Carbon Dioxide 30 mmol/L (22.0-30.0); Chloride 105 mmol/L (98-107); Estimated Glomerular Filt Rate 81 ml/min (>60); GFR (African American) 98 ML/MIN (>60); Glucose 101 mg/dl (74-100); Sodium 138 mmol/L (136-145)
[2024-07-04 13:51] LABS: Anion Gap 7.3 mEq/L (5-15); Potassium 4.3 mmoL/L (3.5-5.1)
== END 2024-07-04 23:59 | disposition home or self-care (01) ==
LOC: LAB 12:42
PROVIDERS: PCP Internal Medicine Adolescent Medicine; Visit Provider Nurse Practitioner Family
DX: I65.23 Occlusion and stenosis of bilateral carotid arteries (principal); R06.09 Other forms of dyspnea; I50.20 Unspecified systolic (congestive) heart failure; I42.9 Cardiomyopathy, unspecified; Q21.12 Patent foramen ovale; E78.49 Other hyperlipidemia; J44.9 Chronic obstructive pulmonary disease, unspecified; Z86.73 Personal history of transient ischemic attack (TIA), and cerebral infarction without residual deficits; I51.9 Heart disease, unspecified; I48.0 Paroxysmal atrial fibrillation; G47.33 Obstructive sleep apnea (adult) (pediatric)
CPT/HCPCS: 36415; 80048

== ENCOUNTER 2024-07-27 09:23 | Outpatient (CLI) | payer MEDICARE, OTHER, SELFPAY ==
--- NOTE | 2024-07-27 09:23 | MR_ITS ---
APPROVED REPORT Spanish Instructor: CLINICAL INDICATION HFrEF and non-ischemic cardiomyopathy evaluation (LVEF 45% on TTE) TECHNIQUE Image Acquisition: Cardiac magnetic resonance (CMR) was performed on Siemens Espree MRI 1.5T scanner. Software platform sequences were performed using the Siemens Maven MR B19 platform. A set of three-plane, low-resolution, large [id number] localizers were initially acquired. Then axial, coronal, sagittal TrueFISP, as well as axial HASTE images, were obtained. These were followed by gated TrueFISP breathold cinematic sequences obtained in the short axis with 8 mm slices and 2 mm gaps, 2-chamber (vertical long axis), 3-chamber, 4-chamber (horizontal long axis). A bolus of contrast was injected intravenously with first-pass sequences obtained in the short axis and four-chamber planes. After approximately 10 minutes, a TI expander sequence was performed to determine the optimal TI time. Using the optimized TI time, delayed contrast enhancement segmented inversion???recovery TurboFLASH sequences were obtained in the short axis, 2-chamber, 3-chamber, and 4-chamber projections. 2D-velocity phase mapping was performed. Functional parameters were calculated by offline analysis on an independent workstation ([employer] Platform, CVILa Koketa). Contrast: ProHance??? (Gadoteridol) FINDINGS MORPHOLOGY AND FUNCTION Left ventricle: The left ventricle is normal in size. The indexed left ventricular end-diastolic volume (LVEDVi) is 49 ml/m2 (reference range 57-105 ml/m2 in males, 56-96 ml/m2 in females). Low-normal left ventricular systolic function is present. There is normal left ventricular wall thickness. There are no regional wall motion abnormalities noted. LVEF is calculated at 50.6 % (reference range 57-77%). Right ventricle: The right ventricle is normal in size. The indexed right ventricular end-diastolic volume (RVEDVi) is 61 ml/m2 (reference range 61-121 ml/m2 in males, 48-112 ml/m2 in females). Low-normal right ventricular systolic function is present. RVEF is calculated at 49.0% (reference range 52-72% in males, 51-71% in females). Atria: The left atrium is normal in size. The maximum indexed left atrial volume is 26 ml/m2 (reference range 26-52 ml/m2 in males, 27-53 ml/m2 in females). The right atrium is normal in size. The maximum indexed right atrial volume is 25 ml/m2 (reference range 18-90 ml/m2). Aorta: The diameter of the aortic annulus is normal, measuring 23 mm (coronal view reference range 21-30 mm in males, 19-27 mm in females). The diameter of the aortic sinus is normal, measuring 33 mm (coronal view reference range 25-42 mm in males, 24-36 mm in females). The diameter of the sinotubular junction is normal, measuring 27 mm (coronal view reference range 18-32 mm in males, 18-28 mm in females). The diameters of the ascending and descending thoracic aorta are normal. Main pulmonary artery: The main pulmonary artery diameter is normal. Pericardium: The pericardial thickness is normal. The pericardial thickness measures 2.3 mm (normal < 4.0 mm). There is no pericardial effusion. VALVES The valvular morphologies in the visualized sequences appear normal. There is no significant valvular stenosis or regurgitation of the mitral, aortic, tricuspid, or pulmonic valve noted visually. Systolic anterior motion of the mitral valve is not visualized. Ratio of pulmonary to systemic flow, Qp:Qs ratio = 1.0 (normal < or = 1.2, hemodynamically significant shunt > 1.5), demonstrating no evidence of hemodynamically significant shunt. TISSUE CHARACTERIZATION Resting Perfusion: Normal myocardial blood flow at rest. No evidence of resting hypoperfusion. Myocardial Fibrosis and/or edema: Normal gadolinium kinetics are present. No evidence of late gadolinium enhancement is noted, consistent with absence of myocardial scarring, infarction, or necrosis. T2-weighted imaging demonstrates no evidence of myocardial edema or inflammation. OTHER No other significant findings are noted. However, this exam is focused on the cardiac structure and function. IMPRESSION Normal LV size with low-normal LV systolic function. LVEDVi= 49 ml/m2 and LVEF= 50.6%. Normal RV size with low-normal RV systolic function. RVEDVi= 61 ml/m2 and RVEF= 49.0%. No atrial enlargement. No CMR evidence of myocardial scarring, infarction, or necrosis. No evidence of myocardial edema or inflammation. Perfusion analysis demonstrates normal blood flow at rest with no evidence of resting hypoperfusion. Ratio of pulmonary to systemic flow, Qp:Qs ratio = 1.0 (normal < or = 1.2, hemodynamically significant shunt > 1.5), demonstrating no evidence of hemodynamically significant shunt. This CMR demonstrates normal biventricular size and low-normal systolic function. No CMR evidence of cardiomyopathy. No evidence of myocardial scarring, inflammation, or prior infarct. COMPARISON None CRITICAL RESULT None COMMUNICATION Per this written report The findings of this cardiac MR were reviewed, reported, and signed by Dajuan Welsh MD (Senior Net Software Engineer). Conclusion Electronically signed by : Brisa Welsh MD 08/06/2024 17:27:47
[2024-07-27] MEDS: SODIUM CHLORIDE 0.9% 10ML SYR (RAD ONLY) 10 ML IV (10:41)
[2024-07-27] MEDS: 0.9 % SODIUM CHLORIDE 50 ML VIAL IV (10:41)
[2024-07-27] MEDS: GADOTERIDOL INJ 20ML SYRINGE 16 ML IV (10:42)
== END 2024-07-27 23:59 | disposition home or self-care (01) ==
LOC: RAD 09:23
PROVIDERS: PCP Internal Medicine Adolescent Medicine; Visit Provider Physician Assistant
DX: I50.20 Unspecified systolic (congestive) heart failure (principal); I42.9 Cardiomyopathy, unspecified
CPT/HCPCS: 75561; A9576

== ENCOUNTER 2024-08-14 11:57 | Outpatient (CLI) | payer MEDICARE, OTHER, SELFPAY ==
--- OUTSIDE RECORDS SUMMARY | 2024-08-14 12:01 | XMS_ITS | Encounter Summary ---
Author Organization [facility] Address [address] [place] [address] Care Team Providers Care Vp Product Marketing Name Role Phone Madhavi Coreas Unavailable Unavailable Smitha Alfredo APRN, DNP Unavailable [phone] Oskar Teresa Zeferino DMD Unavailable [phone] Kevon Leger MD Unavailable [phone] Adeel Gomez MD Primary Care Provider [phone] Reason for Referral * Consultation (Routine) - Authorized Specialty Diagnoses / Procedures Referred By Iona sommers Referred To Contact Neurology Diagnoses Essential tremor Kevon Leger MD [id number] [place] [address] Phone: tel: fax: Referral ID Status Reason Start Date Expiration Date Visits Requested Visits Authorized [id number] Authorized Specialty Services Required 07/29/2023 01/27/2025 1 1 Scheduling Instructions Movement disorders clinic Encounter Details Date Type Department Care Team (Late st Contact Info) Description 07/29/2023 1:00 PM EDT Office Visit [place] [facility] [address] [place] [address] Kevon Leger MD [id number] [place] [id number] Cerebrovascular accident (CVA) due to embolism of right middle cerebral artery (CMS/HCC) (Primary Dx); Hemiparesis of left nondominant side due to cerebrovascular disease (CMS/HCC); Impaired memory; Essential tremor; Major neurocognitive disorder (CMS/HCC) Social History Tobacco Use Types Packs/Day Years Used Date Smoking Tobacco: Former Smokeless Tobacco: Never Tobacco Cessation:Counseling Given: Not Answered Alcohol Use Standard Drinks/Week Comments Not Currently 0 (1 standard drink = 0.6 oz pur e alcohol) Ocassionally Comments Unknown Sex and Gender Information Value Date Recorded Sex Assigned at Not on file Legal Sex Female 6:08 PM EDT Gender Identity Not on file Sexual Orientation Not on file documented as of this encounter Last Filed Vital Signs Vital Sign Reading Time Taken Comments Blood Pressure 140/80 07/29/2023 1:05 PM EDT Pulse 72 07/29/2023 1:05 PM EDT Temperature - - Respiratory Rate - - Oxygen Saturation 98% 07/29/2023 1:05 PM EDT Inhaled Oxygen Concentration - - Weight 69.4 kg (153 lb) 07/29/2023 1:05 PM EDT Height 162.6 cm (5' 4 ) 07/29/2023 1:05 PM EDT Body Mass Index 26.26 07/29/2023 1:05 PM EDT documented in this encounter Miscellaneous Notes * Progress Notes - Kevon Leger MD - 07/29/2023 1:00 PM EDT Subjective Lida Mejía presents to the [facility] as a returning patient today with/for prior ischemic stroke The patient is a 78-year-old person whose medical problems are significant for prior ischemic stroke (residual left hemiparesis), major neurocognitive impairment (with behavioral disturbance), essential tremor, prior lumbar spine surgeries (status post lumbar microdiskectomy x3), patent foramen ovale (status post closure), sleep apnea (using CPAP), depression, anxiety, who was evaluated in the [facility] Stroke clinic for follow-up of prior stroke. Briefly, the patient had her first stroke sometime around 1999. She has a history of right parietalstroke for which she continues to have some residual left hemiparesis. The patient had an admissionto the Stroke Service in June 2018 for transient vertigo. The discharge diagnosis was transient ischemic attack versus MRI negative stroke. A subsequent MRI in October 2018 showed chronic infarctwith no significant interval change compared to the prior 2018 MRI. The mechanism of the parietal stroke was felt to be paradoxical embolism via patent foramen ovale, which was closed by Cardiology in October 2018. Prior external cardiac rehab nurse, vascular imaging, and hypercoagulable workup have been essentially unremarkable. The patient remains on clopidogrel and atorvastatin secondary stroke prophylaxis. She is on clopidogrel as she previously had strokes on aspirin and wanted to take clopidogrel instead. She underwent neuropsychological testing in November of 2018 that was notable for a ma christina neurocognitive impairment, mild severity, with behavioral disturbance suspected to be secondaryto a vascular etiology. The patient also has a history of unsteady gait, falls, and tremor. She has a history of cervical spine stenosis for which she has previously been seen by Neurosurgery and was not felt to be a surgical candidate (as recently as September 2021). She also has a history of lumbar spine surgeries and has previously undergone micro diskectomies (x3). She most recently saw Neurosurgery on 23 October 2021 for worsening low back pain and left leg weakness and pain. Her imaging (MRI lumbar spine, August 2021) demonstrated a left L4-L5 disc herniation. She was referred to pain management for an epidural steroid injection and was started on a trial of cyclobenzaprine. A prior MRI of the cervical spine from February 2021 noted mild to moderate spondylitic disease worse at C6-C7 with there is moderate bilateral neural foraminal narrowing. The patient has previously been evaluated in the movement disorders Clinic regarding her gait and unsteadiness (December 2018). At that time, her gait and unsteadiness was felt to be a combination of her prior stroke and neuropathy. Her upper extremity tremor was felt to be essential tremor. For the asummary of the movement disorders Clinic and related evaluations, please see the prior stroke clinic note dated 09 September 2022. The patient was last seen in the Stroke Clinic on 09 September 2022. Today, the patient presented with her . She said that she was doing well all things considered. She said that she has had no additional concerns related to her stroke. She has had no sudden onset weakness, speech difficulty vision loss, or sensory changes concerning for a new stroke since she was last seen in the clinic. The patient denied any recent injuries, illnesses, hospitalizations, or medication changes. The patient has had no issues with secondary stroke prophylaxis medications: clopidogrel 75 mg daily atorvastatin 40 mg daily. The patient said that over the last four months orso, she has noticed increasing difficulty with her memory. She cited examples of forgetting phone numbers and forgetting names of people that she should remember. Her and she reported that she has had some ongoing stress related to family members. However, the family related stress significantly worsened about four months ago. There have been no other changes in her health or medications over the last four months. She said that her gait is maybe a little bit worse now than it was when she was last seen in August 2022. She also said that she has noticed the tremor in her arms more over the last several months. She said that it has been there for some time. Current Outpatient Medications on File Prior to Visit Medication Sig Dispense Refill albuterol 108 (90 Base) MCG/ACT inhaler Inhale 1-2 puffs every 4 (four) hours if needed. atorvastatin (Lipitor) 40 MG tablet Take by mouth every night. busPIRone (Buspar) 10 MG tablet Take 2 tablets (20 mg) by mouth 2 (two) times a day. clopidogrel (Plavix) 75 MG tablet Take 1 tablet (75 mg) by mouth 1 (one) time each day. estradiol (Estrace) 0.1 MG/GM vaginal cream INSERT 1 APPLICATORFUL VAGINALLY DAILY famotidine (Pepcid) 20 MG tablet Take 1 tablet (20 mg) by mouth 2 (two) times a day. gabapentin (Neurontin) 100 MG capsule Take by mouth. hydrOXYzine HCl (Atarax) 25 MG tablet Take 0.5 tablets (12.5 mg) by mouth 2 (two) times a day. ibuprofen 600 MG tablet if needed. Vortioxetine HBr (Trintellix) 20 MG tablet Take by mouth 1 (one) time each day. Wixela Inhub 250-50 MCG/ACT diskus inhaler Inhale 1 puff 2 (two) times a day. No current facility-administered medications on file prior to visit. Objective Vitals: 07/29/23 1305 BP: (!) 140/80 Pulse: 72 SpO2: 98% Physical Exam Constitutional: Patient in no acute distress. Patient appears stated age. Ears, Nose, Mouth, Throat: Mucous membranes appear moist. No appreciable hearing impairment. Nares patent. Eyes: Anicteric sclera. No appreciable conjunctival injection. Respiratory: Symmetric chest expansion. Non-labored breathing. Psychiatric: Appropriate mood and affect. Patient is cooperative. Patient appears to have insight. Neurological Examination: Mental Status: Alert and oriented to person, time, and place. Normal speech and language without dysarthria. Concentration and attention full. Cranial Nerves: No appreciable deficit in cranial nerves II-XII. Motor: Left upper extremity 5/5. Right upper extremity 5/5. Left lower extremity 4+/5 throughout. Right lower extremity 4+/5 with hip flexion, 5/5 elsewhere. No appreciable resting tremor. Sensory: The patient reported intact sensation to light touch and vibration in the upper extremities bilaterally. Reduced sensation to light touch and vibration distally, more prominent in the left leg compared to the right leg. Reflexes: Reflexes 2+ throughout. Coordination: She appeared to have an intention tremor with [id number] testing bilaterally.No appreciable leg ataxia. No appreciable dysdiadochokinesia. Gait: She had a slightly unsteady gait, with a wide base as she ambulated. Assessment/Plan: Diagnosis Plan 1. Cerebrovascular accident (CVA) due to embolism of right middle cerebral artery (CMS/HCC) 2. Hemiparesis of left nondominant side due to cerebrovascular disease (CMS/HCC) 3. Impaired memory TSH Vitamin B12 4. Essential tremor 5. Major neurocognitive disorder (CMS/HCC) The patient's prior right parietal stroke appears embolic, and was likely related to her patent foramen ovale, which has since been closed. For secondary stroke prophylaxis, she remains on clopidogrel and atorvastatin. We emphasized the importance of continuing her medication as well as continuing to optimize her comorbid conditions to reduce her overall stroke risk in the future. Her reported residual left-sided motor and sensory issues likely reflect post stroke deficits. She also likely has cognitive dysfunction as a result of her stroke based on her prior neuropsychological evaluation that noted major neurocognitive disorder with behavioral disturbance suspected to be secondary to a vascular etiology. As she reported ongoing issues with her gait today, we discussed additional evaluation with physical therapy, but the patient declined. In the setting of her reportedly worsened tremor, we discussed a return to the movement disorders Clinic, and the patient was agreeable. I suspect that her worsened memory symptoms may reflect a functional neurologic disorder in the setting of ongoing familial stress in the setting of her underlying post stroke cognitive dysfunction. We recheckedher vitamin B12 and TSH levels, which were previously unremarkable back in 2019. They are unremarkable today. I counseled the patient on the importance of managing stressors and the potential benefitof establishing care with a provider on the mental health spectrum. She expressed her understandingof these recommendations. -checked TSH and B12 today -Continue clopidogrel 75 mg daily for secondary prevention of stroke -Continue atorvastatin 40 mg daily for secondary stroke prevention, goal LDL <70 -Encouraged optimization of comorbid conditions and appropriate lifestyle changes to reduce future stroke risk -BP control with goal <130/80 -glycemic control with goal of euglycemia -referral to movement disorders Clinic in the setting of worsened tremor -Return to stroke clinic as needed Counseling Documentation: The patient and was counseled regarding prognosis, risks and benefit of treatment options, risk factor reductions, instructions for management, patient and family education, impressions, and importance of compliance with treatment. Education provided was verbal counseling. I spent 57 minutes on the day of the encounter providing care including reviewing prior records, reviewing prior labs/studies, obtaining history from the patient/family, discussing the management plan with the patient/family, counseling the patient/family, entering orders, and documentation of the e ncounter. documented in this encounter Plan of Treatment Scheduled Referrals Name Type Priority Associated Diagnoses Order Schedule Ambulatory referral to Neurology Outpatient Referral Routine Essential tremor 1 Occurrences starting 07/29/2023 until 01/26/2025 documented as of this encounter Results * Vitamin B12 (07/29/2023 1:56 PM EDT) Vitamin B12, Serum 552 210 - 1,033 pg/mL 07/29/2023 3:53 PM EDT [facility] Blood Venous blood specimen / Unknown Venipuncture / Unknown 07/29/2023 1:56 PM EDT 07/29/2023 1:57 PM EDT us Kevon Leger MD LAB BLOOD ORDERABLES Final R esult [facility] [address] [place] [address] * TSH (07/29/2023 1:56 PM EDT) Thyroid Stimulating Hormone, Plasma 2.09 0.40 - 4.20 uIU/mL 07/29/2023 3:44 PM EDT LAB Blood Venous blood specimen / Unknown Venipuncture / Unknown 07/29/2023 1:56 PM EDT 07/29/2023 1:57 PM EDT Kevon Leger MD LAB BLOOD ORDERABLES Final R esult Performing Organization Address City/[facility]/ZIP Co de Phone Number [facility] [address] [place] [address] documented in this encounter Visit Diagnoses Diagnosis Cerebrovascular accident (CVA) due to embolism of right middle cerebral artery (CMS/HCC)- Primary Hemiparesis of left nondominant side due to cerebrovascular disease (CMS/HCC) Impaired memory Memory loss Essential tremor Major neurocognitive disorder (CMS/HCC) documented in this encounter Additional Health Concerns Assessment Noted Time A fall risk assessment has been complete d for the patient 07/29/2023 1:11 PM EDT A Body Mass Index follow-up plan has been documented for the patient 07/29/2023 4:06 PM EDT documented as of this encounter Care Teams Vp Product Marketing Relationship Specialty Start Date End Date Adeel Gomez MD [address] [place] [address] PCP - General Internal Medicine [facility] Dental [facility] Assistant 03/25/21 Smitha Alfredo APRN, DNP [address] [place] [id number] Nurse Practitioner Neurosurgery 10/23/21 Teresa Schmitt DMD [address] [address] Dentist 09/08/22 Kevon Leger MD [address] [place] [address] Service Attending Neurology 09/09/22 documented as of this encounter
--- OUTSIDE RECORDS SUMMARY | 2024-08-14 12:01 | XMS_ITS | Encounter Summary ---
Author Organization [facility] Address [address] [place] [address] Care Team Providers Care Summer Sessions Director Name Role Phone Debra Yip APRN Primary Care Provider + [phone] Madhavi Coreas Unavailable Unavailable Kelly Moreno DMD Unavailable [phone] Smitha Alfredo APRN, DNP Unavailable [phone] Encounter Details Date Type Department Care Team (Latest Contact Info) Description 10/23/2021 Travel Social History Tobacco Use Types Packs/Day Years Used Date Smoking Tobacco: Former Smokeless Tobacco: Never Alcohol Use Standard Drinks/Week Comments Not Currently 0 (1 standard drink = 0.6 oz pur e alcohol) Ocassionally Comments Unknown Sex and Gender Information Value Date Recorded Sex Assigned at Not on file Legal Sex Female 6:08 PM EDT Gender Identity Not on file Sexual Orientation Not on file COVID-19 Exposure Response Date Recorded In the last month, have you been in contact with someone who was confirmed or suspected to have Coronavirus / COVID-19? No / Unsure 10/23/2021 8:02 AM EST documented as of this encounter Plan of Treatment Not on file documented as of this encounter Visit Diagnoses Not on filedocumented in this encounter Additional Health Concerns Assessment Noted Time A fall risk assessment has been complete d for the patient 10/23/2021 8:13 AM EST documented as of this encounter Care Teams Summer Sessions Director Relationship Specialty Start Date End Date Debra Yip APRN [address] [place] [address] PCP - General 02/07/21 09/08/22 [facility] dentistry Dental Student Dental Burn Out Scarfing Operator 03/25/21 Kelly Moreno, DMD [address] [facility] [place] [address] Dentist Dental Burn Out Scarfing Operator 03/25/2109/08 Smitha Alfredo APRN, DNP [address] [place] [address] Nurse Practitioner Neurosurgery 10/23/21 documented as of this encounter
--- OUTSIDE RECORDS SUMMARY | 2024-08-14 12:01 | XMS_ITS | Encounter Summary ---
Author Organization [facility] Address [address] [place] [address] Care Team Providers Care Dog Show Judge Name Role Phone Madhavi Coreas Unavailable Unavailable Smitha Alfredo APRN, DNP Unavailable [phone] Teresa Schmitt DMD Unavailable [phone] Kevon Leger MD Unavailable [phone] Adeel Gomez MD Primary Care Provider + [phone] Encounter Details Date Type Department Care Team (Latest Contact Info) Description 09/09/2022 Travel Social History Tobacco Use Types Packs/Day [...] Exposure Response Date Recorded In the last 10 days, have yo u been in contact with someone who was confirmed or suspected to have Coronavirus/COVID-19? No / Unsure 09/09/2022 11:01 AM EST documented as of this encounter Plan of Treatment Not on file documented as of this encounter Visit Diagnoses Not on filedocumented in this encounter Additional Health Concerns Assessment Noted Time A fall risk assessment has been complete d for the patient 09/09/2022 11:13 AM EST documented as of this encounter Care Teams Dog Show Judge Relationship Specialty Start Date End Date Adeel Gomez MD [address] [place] [address] PCP - General Internal Medicine 09[facility]09/22 [facility] Dental Student Dental Meter Changes Records Clerk 03/25/21 Smitha Alfredo APRN, [facility] [address] [place] [address] Nurse Practitioner Neurosurgery 10/23/21 Teresa Schmitt, DMD [address] [place] [address] Dentist 09/08/22 Kevon Leger MD [address] [place] [address] Service Attending Neurology 09/09/22 documented as of this encounter
--- OUTSIDE RECORDS SUMMARY | 2024-08-14 12:01 | XMS_ITS | Encounter Summary ---
Author Organization [facility] Address [address] [place] [address] Care Team Providers Care Wic Site Coordinator Name Role Phone Debra Yip APRN Primary Care Provider + [phone] Madhavi Coreas Unavailable Unavailable Kelyl Moreno DMD Unavailable [phone] Smitha Alfredo APRN, DNP Unavailable [phone] Oskar Teresa Zeferino DMD Unavailable [phone] Kevon Leger MD Unavailable [phone] Adeel Gomez MD Primary Care Provider + [phone] Encounter Details Date Type Department Care Team (Late st Contact Info) Description 08/02/2020 Abstract DSB [facility] [address] [place] [address] Dental, Provider, DDS [address] [place] [address] Social History Tobacco Use Types Packs/Day Years Used Date Smoking Tobacco: Never Assessed Comments Unknown Sex and Gender Information Value Date Recorded Sex Assigned at Not on file Legal Sex Female 6:08 PM EDT Gender Identity Not on file Sexual Orientation Not on file documented as of this encounter Plan of Treatment Not on file documented as of this encounter Visit Diagnoses Not on filedocumented in this encounter Care Teams Wic Site Coordinator Relationship Specialty Start Date End Date Debra Yip APRN [address], [place] [id number] PCP - General 02/07/21 09/08/22 Adeel Gomez MD [address] [place] [address] PCP - General Internal Medicine 09/09/22 [facility] dentistry Dental Student Dental Patrol Community Service Officer 03/25/21 Kelly Moreno, DMD [address] [facility] [place] [address] Dentist Dental Patrol Community Service Officer 03/25/2109/08 Smitha Alfredo APRN, DNP [address] [place] [address] Nurse Practitioner Neurosurgery 10/23/21 Teresa Schmitt, DMD [address] [facility] [address] [place] [address] Dentist 09/08/22 Kevon Leger MD [address] [place] [address] Service Attending Neurology 09/09/22 documented as of this encounter
--- OUTSIDE RECORDS SUMMARY | 2024-08-14 12:01 | XMS_ITS | Encounter Summary ---
Author Organization [facility] Address [address] [place] [address] Care Team Providers Care Engineering Clerk Name Role Phone Debra Yip LITZY Primary Care Provider + [phone] Madhavi Coreas Unavailable Unavailable Kelly Moreno DMD Unavailable [phone] Smitha Alfredo APRN, DNP Unavailable Reason for Visit * Reason Onset Date Comments HCN - Patient Message 10/06/2021 gibson appt Encounter Details Date Type Department Care Team (Late st Contact Info) Description 10/06/2021 Telephone [place] [facility] [address] [place] [address] Smitha Alfredo APRN, KARLENE [address] [place] [address] HCN - Patient Message (BPeSA appt) Social History Tobacco Use Types Packs/Day Years Used Date Smoking Tobacco: Former Comments Unknown Sex and Gender Information Value [...] AM EST documented as of this encounter Miscellaneous Notes * Telephone Encounter - Saroj Donn - 10/06/2021 10:46 AM EST This has been r\s and left message for pt * Telephone Encounter - Andre Caceres - 10/06/2021 10:32 AM EST Please see below. * Telephone Encounter - Lois Ortega - 10/06/2021 8:48 AM EST Patient Phone Message Reason for Call: Patient needs to reschedule appointment tomorrow. Please advise. Best contact number and optimal time of day to reach caller: [phone] Note: Please do not reply to this message. Follow-up communication and further actions as a result of this message need to be communicated with the patient directly, if the patient is not active onMyChart. If the patient is active on MyChart, they will receive notification of the communication/outcome via ImmusanTt. documented in this encounter Plan of Treatment Not on file documented as of this encounter Visit Diagnoses Not on filedocumented in this encounter Care Teams Engineering Clerk Relationship Specialty Start Date End Date Debra Yip APRN [address] [place] [address] PCP - General 02/07/21 09/08/22 [facility] Dental Student Dental Inspector Machined Parts 03/25/21 Kelly Moreno DMD [address] [place] [address], [address] [address] Dentist Dental Inspector Machined Parts 03/25/2109/08 Smitha Alfredo APRN, DNP [address] [place] [address] Nurse Practitioner Neurosurgery 10/23/21 documented as of this encounter
--- OUTSIDE RECORDS SUMMARY | 2024-08-14 12:01 | XMS_ITS | Encounter Summary ---
Author Organization [facility] Address [address] [place] [address] Care Team Providers Care Bias Binding Folder Name Role Phone Madhavi Coreas Unavailable Unavailable Smitha Alfredo APRN, DNP Unavailable [phone] Oskar Teresa Zeferino DMD Unavailable Kevon Leger MD Unavailable Adeel Gomez MD Primary Care Provider [phone] Reason for Visit * Reason Onset Date Comments HCN - Patient Message 09/11/2022 PT order Encounter Details Date Type Department Care Team (Late st Contact Info) Description 09/11/2022 Telephone [place] [facility] [address] [place] [address] Kevon Leger MD [address] [place] [address] HCN - Patient Message (PT order) Social History Tobacco Use Types Packs/Day Years [...] encounter Miscellaneous Notes * Telephone Encounter - Fareed Tapia - 09/23/2022 2:21 PM EST Faxed signed PT eval & plan of care for 09-15-22 to 11-09-22 to [facility]. * Telephone Encounter - Noemi Alvarado - 09/14/2022 9:21 AM EST Faxed order to number listed below. * Telephone Encounter - Lois Ortega - 09/11/2022 3:59 PM EST Patient Phone Message Reason for Call: Patient would like her PT order faxed to: [phone]. Please advise. Best contact number and optimal time of day to reach caller: [phone] Note: Please do not reply to this message. Follow-up communication and further actions as a result of this message need to be communicated with the patient directly, if the patient is not active onMyChart. If the patient is active on MyChart, they will receive notification of the communication/outcome via [email or web address]. documented in this encounter Plan of Treatment Not on file documented as of this encounter Visit Diagnoses Not on filedocumented in this encounter Additional Health Concerns Assessment Noted Time A fall risk assessment has been complete d for the patient 09/09/2022 11:13 AM EST documented as of this encounter Care Teams Bias Binding Folder Relationship Specialty Start Date End Date Adeel Gomez MD [address] [place] [address] PCP - General Internal Medicine [facility] Dental Makeup Editor 03/25/21 Smitha Alfredo APRN, KARLENE [address] [place] [address] Nurse Practitioner Neurosurgery 10/23/21 Teresa Schmitt DMD [address] [place] [address] Dentist 09/08/22 Kevon Leger MD [address] [place] [address] Service Attending Neurology 09/09/22 documented as of this encounter
--- OUTSIDE RECORDS SUMMARY | 2024-08-14 12:01 | XMS_ITS | Encounter Summary ---
Author Organization [facility] Address [address] [place] [address] Care Team Providers Care Research Recruiter Name Role Phone Madhavi Coreas Unavailable Unavailable Smitha Alfredo APRN, DNP Unavailable [phone] Teresa Schmitt DMD Unavailable Kevon Leger MD Unavailable Adeel Gomez MD Primary Care Provider [phone] Encounter Details Date Type Department Care Team (Late st Contact Info) Description 06/30/2023 Telephone [place] [facility] [address] [place] [address] Kevon Leger MD [address] [place] [address] Social History Tobacco Use Types Packs/Day Years [...] documented as of this encounter Care Teams Research Recruiter Relationship Specialty Start Date End Date Adeel Gomez MD [address] [place] [address] PCP - General Internal Medicine 09/09/22 [facility] dentistry Dental Student Dental Gridcap Machine Operator 03/25/21 Smitha Alfredo, RIVET TAPPING MACHINE OPERATOR, DNP [address] [place] [address] Nurse Practitioner Neurosurgery 10/23/21 Teresa Schmitt, DMD [address] [address] Dentist 09/08/22 Kevon Leger MD [address] [place] [address] Service Attending Neurology 09/09/22 documented as of this encounter
--- OUTSIDE RECORDS SUMMARY | 2024-08-14 12:01 | XMS_ITS | Continuity of Care Document ---
Author Name [facility] Organization [facility] Care Team Providers Care Forestry Tree Pruner Name Role Phone [facility] Unavailable Unavailable Problems Combined list of problems from Department of Defense and Veterans Affairs facilities. It does not include entries that were removed or entered in error. Problem Status Onset Date Problem Type Date of Resolution Comments Source Asthma * (ICD-9-CM 493.90) Active Condition [place] Depression * (ICD-9-CM 311./300.4) Active [place] [facility] DJD * (ICD-9-CM 715.90) [place] [facility] GERD * (ICD-9-CM 530.81) Active Condition [place] Spinal Stenosis Lumbar Region, with Neurogenic Claudication (ICD-9-CM 724.03) Active Condition [place] [facility] Spinal stenosis, other than cervical (ICD-9-CM 724.09) Active Condition [place] Medications Combined list of outpatient medications from Department of Defense and Veterans Affairs facilities.Medications provided include 1) outpatient medications from the last 15 months, and 2) patient-reported medications. Medication Details Route Status Patient Instructions Prescription Expires Prescription Number Last Dispense Date Ordering Provider Order Date Order Qty Source ZZHYDROCODO NE 7.5/ACETAMI NOPHEN 500MG TB TAKE ONE TABLET BY MOUTH TWICE A DAY ORAL ACTIVE Brunilda CID T 2010 [facility] [place] Immunizations Combined list of available immunizations from the Department of Defense and Veterans Affairs facilities. Immunization Series Date Given Administered By Site Reaction Lot Number CVX Code Drug Emergency Dispatcher Status Comments Source INFLUENZA, UNSPECIFIED FORMULATION 2009 88 complet ed [facility] Social History Combined list of available smoking, tobacco, and other social history from Department of Defense and Veterans Affairs facilities. Social History Type Response Date Comment Sourc e Tobacco smoking status NHIS HF V9 QUIT SMOKING > 1YR 10/21/2010 >10 years, [facility] [place]
--- OUTSIDE RECORDS SUMMARY | 2024-08-14 12:01 | XMS_ITS | Encounter Summary ---
Author Organization [facility] Address [address] [place] [address] Care Team Providers Care Tie Bucker Name Role Phone Debra Yip LITZY Primary Care Provider + [phone] Madhavi Coreas Unavailable Unavailable Kelly Moreno DMD Unavailable [phone] Smitha Alfredo APRN, DNP Unavailable [phone] Encounter Details Date Type Department Care Team (Late st Contact Info) Description 10/23/2021 8:00 AM EST Office Visit [place] [facility] [address] [place] [address] Smitha Alfredo APRN, DNP [address] [place] [address] HNP (herniated nucleus pulposus), lumbar (Primary Dx); Left leg pain; Spasm of muscle of lower back Social History Tobacco Use Types Packs/Day Years [...] AM EST documented as of this encounter Last Filed Vital Signs Vital Sign Reading Time Taken Comments Blood Pressure 114/84 10/23/2021 8:14 AM EST Pulse - - Temperature - - Respiratory Rate - - Oxygen Saturation - - Inhaled Oxygen Concentration - - Weight 69.9 kg (154 lb) 10/23/2021 8:14 AM EST Height 170.2 cm (5' 7 ) 10/23/2021 8:14 AM EST Body Mass Index 24.12 10/23/2021 8:14 AM EST documented in this encounter Miscellaneous Notes * Progress Notes - Smitha Alfredo NP - 10/23/2021 8:00 AM EST We had the pleasure of seeing your patient in our clinic today for continued Neurosurgical evaluation. Chief Complaint Low back and left leg pain History Of Present Illness Lida Mejía is a 76 y.o. female here for neurosurgical evaluation regarding low back pain and left leg pain. The patient was initially seen in clinic on February 27, 2021 regarding cervical stenosis, and surgery was not recommended. She was instructed to follow up as needed. At today's visit, she has been experiencing left leg numbness and worsening left leg weakness sinceChristmas time. She states that after the [address], she could not feel her legs and felt as if she could not maneuver . She has occasional pain in her left thigh, but has a knife like pain in her left lateral calf and foot. She also has severe left foot numbness that is worse in the mornings. She will occasionally have pain in her right calf and foot. She has minor low back pain. 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 After her stroke in 2019, her balance worsened, she tends to lean to the left and also wants to lean backwards. She has a fall on a monthly basis. There are times when she has severe left leg pain that her left leg will give out. She also has difficulty lifting her left foot, which is not new for her. She denied bladder incontinence and saddle anesthesia, but has had a few episodes of stool incontinence over the last 3-4 months. The last time she did physical therapy was years ago. She also had injections in 2011. She is not working. She takes Tylenol as needed for pain. When her pain started in August she took a steroid pack which did help her symptoms. She is on Plavix for prior stroke and also had a heart surgery for a hole in her heart. She rated her pain as a 3-4/10. Of note, she has a history of 3 back surgeries, she had 2 lumbar microdiskectomies in 2011 and an additional lumbar microdiskectomy in 2012 by a physician in [place] who has since retired. She hassignificant improvement in her symptoms after her 3rd microdiskectomy. Past Medical History She has a past medical history of Cerebral cysts, Laceration without foreign body of unspecified eyelid and periocular area, initial encounter, Migraine, unspecified, not intractable, without status migrainosus, Personal history of other diseases of the nervous system and sense organs, Personal history of other diseases of the nervous system and sense organs, Personal history of other diseases ofthe respiratory system, Personal history of other mental and behavioral disorders, Personal historyof other mental and behavioral disorders, and Personal history of other specified conditions. Surgical History She has a past surgical history that includes Back surgery (N/A) and Patent foramen ovale closure (N/A). Family History Family History Problem Relation Name Age of Onset ??? Lung disease Mother ??? Other cancer Father ??? Other cancer Sister Social History She reports that she has quit smoking. She has never used smokeless tobacco. She reports previous alcohol use. Drug use questions deferred to the physician. Medications Current Outpatient Medications Medication Sig Dispense Refill ??? albuterol (Ventolin HFA) 108 (90 Base) MCG/ACT inhaler Inhale 1-2 puffs every 4 (four) hours ifneeded. ??? atorvastatin (Lipitor) 40 MG tablet Take by mouth every night. ??? budesonide-formoterol (Symbicort) 160-4.5 MCG/ACT inhaler Inhale 2 (two) times a day if needed. ??? busPIRone (Buspar) 10 MG tablet Take 2 tablets by mouth 2 (two) times a day. ??? clopidogrel (Plavix) 75 MG tablet Take 1 tablet by mouth 1 (one) time each day. ??? gabapentin (Neurontin) 100 MG capsule Take by mouth. ??? hydrOXYzine HCl (Atarax) 25 MG tablet Take 0.5 tablets by mouth 2 (two) times a day. ??? Vortioxetine HBr (Trintellix) 20 MG tablet Take by mouth 1 (one) time each day. ??? cyclobenzaprine (Flexeril) 5 MG tablet Take 1 tablet (5 mg total) by mouth 2 (two) times a day.40 tablet 0 No current facility-administered medications for this visit. Allergies Morphine Review of Systems 14 point review of systems was performed and was negative except as noted per HPI. Physical Exam Neurologic exam: Alert and oriented x3. Appropriate memory, attention span, and insight. Motor tenderness to palpation to the lumbar paraspinal muscles and also tenderness to the left trochanteric bursa. Normal coordination noted. Strength 5/5 bilaterally in upper and lower extremities. Able to heel and tiptoe walk bilaterally. No tremor noted. Biceps, triceps, brachioradialis, patellar, achillesreflexes symmetric and 2+ bilaterally. Sensation, including light touch, intact bilaterally. Negative Jeffry's bilaterally. No clonus noted bilaterally. Negative straight leg raise test and Tony's test bilaterally. Balance off some with ambulation. Last Recorded Vitals Visit Vitals BP 114/84 Ht 1.702 m (5' 7 ) Wt 69.9 kg (154 lb) BMI 24.12 kg/m?? Smoking Status Former Smoker BSA 1.82 m?? Labs No lab exists for component: ALB Imaging I personally reviewed and independently interpreted MRI of the lumbar spine obtained September 22, 2021, imaging demonstrates a left-sided L4-5 disc herniation, causing moderate left-sided neural foraminal stenosis, there is also evidence of scar tissue at that level. She also has moderate central canal stenosis at L3-4. Assessment and Plan Lida Mejía is a 76 y.o. female here for neurosurgical evaluation regarding low back pain and left leg pain. At this time, the patient's imaging demonstrates a left-sided L4-5 disc herniation,she experiences daily pain in her left lower extremity, which is worse in her left lateral calf andfoot. She does not have a foot drop on physical exam. Since she has not underwent any conservative management treatments, I provided her with an order for physical therapy which she will get set up locally. I have also ordered a referral to [facility] regarding a left-sided L4-5 epidural steroid injection. Due to spasms, I have also ordered a trial of Flexeril 5 mg twice daily. The patient does not want to undergo surgery until her pain is intolerable. She is also at high risk for surgery complications given her history of strokes and taking Plavix. She was instructed to contact the clinic if she has continued left leg symptoms after physical therapy and injections. If so, we will have her follow up in clinic with a surgeon. I would recommend that the patient have further evaluation regarding her bowel incontinence, the spinal stenosis at L4-5 should not cause her bowel incontinence symptoms. Smitha Alfredo DNP, LITZY Division of Neurosurgery [facility] documented in this encounter Plan of Treatment Not on file documented as of this encounter Visit Diagnoses Diagnosis HNP (herniated nucleus pulposus), lumbar- Primary Left leg pain Pain in soft tissues of limb Spasm of muscle of lower back documented in this encounter Additional Health Concerns Assessment Noted Time A fall risk assessment has been complete d for the patient 10/23/2021 8:13 AM EST documented as of this encounter Care Teams Tie Bucker Relationship Specialty Start Date End Date Debra Yip APRN [address] [address] PCP - General 02/07/21 09/08/22 [facility]oss [facility] dentistry Dental Student Dental Trolley Coach Driver 03/25/21 Kelly Moreno DMD [address] [facility] [place] [address] Dentist Dental Trolley Coach Driver 03/25/2109/08 Smitha Alfredo APRN, KARLENE [address] [facility] [address] [place] [address] Nurse Practitioner Neurosurgery 10/23/21 documented as of this encounter
--- OUTSIDE RECORDS SUMMARY | 2024-08-14 12:01 | XMS_ITS | Clinical Summary ---
Author Organization [facility] Address [address] [place] [address] Care Team Providers Care Mixer Foam Rubber Name Role Phone Madhavi Coreas Unavailable Unavailable Smitha Alfredo APRN, DNP Unavailable Teresa Schmitt DMD Unavailable [phone] Kevon Leger MD Unavailable [phone] Adeel Gomez MD Primary Care Provider [phone] Allergies Active Allergy Reactions Criticality Noted Date Comments Morphine Itching Medium 07/03/2018 Medications gabapentin (Neurontin) 100 MG capsule Take by mouth. 1 Active albuterol 108 (90 Base) MCG/ACT inhaler Inhale 1-2 puffs every 4 (four) hours if needed. 9 Active atorvastatin (Lipitor) 40 MG tablet Take by mouth every night. 8 Active busPIRone (Buspar) 10 MG tablet Take 2 tablets (20 mg) by mouth 2 (two) times a day. 9 Active clopidogrel (Plavix) 75 MG tablet Take 1 tablet (75 mg) by mouth 1 (one) time each day. 8 Active hydrOXYzine HCl (Atarax) 25 MG tablet Take 0.5 tablets (12.5 mg) by mouth 2 (two) times a day. 9 Active Vortioxetine HBr (Trintellix) 20 MG tablet Take by mouth 1 (one) time each day. 8 Active estradiol (Estrace) 0.1 MG/GM vaginal cream INSERT 1 APPLICATORFUL VAGINALLY DAILY 3 Active famotidine (Pepcid) 20 MG tablet Take 1 tablet (20 mg) by mouth 2 (two) times a day. 3 Active Wixela Inhub 250-50 MCG/ACT diskus inhaler Inhale 1 puff 2 (two) times a day. 3 Active ibuprofen 600 MG tablet if needed. 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 09/09/2022 Cerebrovascular accident (CV A) due to embolism of right middle cerebral artery 09/09/2022 Gait difficulty 09/09/2022 Family History Medical History Relation Name Comments Other cancer Father Lung disease Mother Other cancer Sister Relation Name Status Comments Father Mother Sister Social History Tobacco Use Types Packs/Day Years [...] on file Sexual Orientation Not on file Last Filed Vital Signs Vital Sign Reading Time Taken Comments Blood Pressure 140/80 07/29/2023 1:05 PM EDT Pulse 72 07/29/2023 1:05 PM EDT Temperature - - Respiratory Rate 16 08/22/2019 1:33 PM EST Oxygen Saturation 98% 07/29/2023 1:05 PM EDT Inhaled Oxygen Concentration - - Weight 69.4 kg (153 lb) 07/29/2023 1:05 PM EDT Height 162.6 cm (5' 4 ) 07/29/2023 1:05 PM EDT Body Mass Index 26.26 07/29/2023 1:05 PM EDT Plan of Treatment Health Maintenance Due Date Last Done Comments Dental Oral Exam 1945 Dental Prophylaxis 1945 Dental X-Ray: Bitewings 1945 Dental X-Ray: Full Mouth 1947 [facility]-Bone Density Scan 1947 [facility]-Depression Screening 1947 [facility]-Medicare Annual Wellness (AWV) 1947 [facility]-/Child/Adol SDOH Screenings 1947 [facility]- SDOH Screenings 1965 [facility]-Adult SDOH Screenings 1965 [facility]-Zoster Vaccines (1 of 2) 1997 [facility]-Pneumococcal Vaccine: 65+ Years (2 of 2 - PCV) 04/18/2021 04/18/2020, 07/26/2002 [facility]-RSV Vaccine: 60+ Years or (1 - 1-dose 75+ series) 2022 [id number] Vaccine (5 - season) 2024 04/18/2022, 07/16/2021, 11/20/2020, Additional history exists [facility]-Influenza Vaccine (#1) 05/28/202407/06, 06/11/2021, 07/08/2020, Additional history exists [facility]-DTaP,Tdap,and Td Vaccines (2 - Td or Tdap) 04/13/2030 04/13/2020, 02/16/2007 [facility]-Hepatitis C Screening Completed 07/03/2018 [facility]-Hepatitis A Vaccines Aged Out 08/09/2018, 04/2018 No longer eligible based on patient's age to complete this topic [facility]-Obesity Intervention Completed 07/29/2023, 08/27 [facility]-HIB Vaccines Aged Out No longer e ligible based on patient's age to complete this topic [facility]-HPV Vaccines Aged Out No longer e ligible based on patient's age to complete this topic [facility]-IPV Vaccines Aged Out No longer e ligible based on patient's age to complete this topic [facility]-Rotavirus Vaccines Aged Out No lo nger eligible based on patient's age to complete this topic Procedures Procedure Name Priority Date/Time Associated Diagnosis Comments HEPATITIS C ANTIBODY - ED W/REFLEX TO HCV QUANT PCR Routine 07/03/2018 2:48 PM EDT from Last 3 Months or Most Recently Relevant to Health Maintenance Results * [place] Hepatitis C Antibody (07/03/2018 2:48 PM EDT) [place] Hepatitis C Ab NEGATIVE Reference Range: Negative SUNQUEST 07/03/2018 2:48 PM EDT 07/03/2018 2:52 PM EDT us Flor Mars MD LAB BLOOD ORDERABLES Final Resu lt SUNQUEST from Last 3 Months or Most Recently Relevant to Health Maintenance Insurance MEDICARE [facility] Care Teams Mixer Foam Rubber Relationship Specialty Start Date End Date Adeel Gomez MD [address] [place] [address] PCP - General Internal Medicine 09/09/22 [facility] dentistry Dental Student Dental Mis Specialist 03/25/21 Smitha Alfredo APRN, DNP [address] [place] [address] Nurse Practitioner Neurosurgery 10/23/21 Teresa Schmitt, DMD [address] [place] [address] Dentist 09/08/22 Kevon Leger MD [address] [place] [address] Service Attending Neurology 09/09/22
--- OUTSIDE RECORDS SUMMARY | 2024-08-14 12:01 | XMS_ITS | Encounter Summary ---
Author Organization [facility] Address [address] [place] [address] Care Team Providers Care Brass Instrument Repair Technician Name Role Phone Debra Yip Kayla MCGHEE Primary Care Provider + [phone] Madhavi Coreas Unavailable Unavailable Kelly Moreno DMD Unavailable [phone] Smitha Alfredo APRN, DNP Unavailable [phone] Teresa Schmitt DMD Unavailable [phone] Kevon Leger MD Unavailable [phone] Adeel Gomez MD Primary Care Provider + [phone] Reason for Visit * Reason Onset Date Comments HCN - Patient Message 08/26/2022 Please wor k in for f/u Encounter Details Date Type Department Care Team (Late st Contact Info) Description 08/26/2022 Telephone [place] [facility] [address] [place] [address] Teresa Lemons MD [address] [place] [address] HCN - Patient Message (Please work in for f/u ) Social History Tobacco Use Types Packs/Day Years [...] encounter Miscellaneous Notes * Telephone Encounter - Fidel Alvarez - 08/27/2022 1:17 PM EST Contacted the patient and let her know that she is scheduled with a new provider for * Telephone Encounter - Daniella Galan - 08/26/2022 2:06 PM EST Patient Phone Message Reason for Call: Patient is wanting a f/u with Teresa as soon as possible. She feels more unsteady. Nothing available in [employer] yet. Best contact number and optimal time of day to reach caller: [phone] Lida Note: Please do not reply to this message. Follow-up communication and further actions as a result of this message need to be communicated with the patient directly, if the patient is not active onMyChart. If the patient is active on MyChart, they will receive notification of the communication/outcome via Intucellt. documented in this encounter Plan of Treatment Not on file documented as of this encounter Visit Diagnoses Not on filedocumented in this encounter Additional Health Concerns Assessment Noted Time A fall risk assessment has been complete d for the patient 10/23/2021 8:13 AM EST documented as of this encounter Care Teams Brass Instrument Repair Technician Relationship Specialty Start Date End Date Debra Yip APRN [address] [place] [address] PCP - General 02/07/21 09/08/22 Adeel Gomez MD [address] [place], [place] [address] PCP - General Internal Medicine 09/09/22 [facility] Dental Student Dental Wind Science And Planning 03/25/21 Kelly Moreno, DMD [address] [facility] [place] [address] Dentist Dental Wind Science And Planning 03/25/2109/08 Smitha Alfredo APRN, DNP [address] [facility] [address] [place] [address] Nurse Practitioner Neurosurgery 10/23/21 Teresa Schmitt, DMD [address] [facility] [address] [place] [address] Dentist 09/08/22 Kevon Leger MD [address] [facility] [address] [place] [address] Service Attending Neurology 09/09/22 documented as of this encounter
--- OUTSIDE RECORDS SUMMARY | 2024-08-14 12:01 | XMS_ITS | Encounter Summary ---
Author Organization [facility] Address [address] [place] [address] Care Team Providers Care Anesthesia Attending Name Role Phone Debra Yip LITZY Primary Care Provider + [phone] Madhavi Coreas Unavailable Unavailable Kelly Moreno DMD Unavailable [phone] Smitha Alfredo APRN, DNP Unavailable [phone] Teresa Schmitt DMD Unavailable [phone] Kevon Leger MD Unavailable [phone] Adeel Gomez MD Primary Care Provider + [phone] Encounter Details Date Type Department Care Team (Late st Contact Info) Description 02/15/2021 Abstract [facility] [address] [place] [address] Smitha Alfredo APRN, DNP [address] [place] [address] Social History Tobacco Use Types Packs/Day Years Used Date Smoking Tobacco: Former Comments Unknown Sex and Gender Information Value Date Recorded Sex Assigned at Not on file Legal Sex Female 6:08 PM EDT Gender Identity Not on file Sexual Orientation Not on file documented as of this encounter Last Filed Vital Signs Vital Sign Reading Time Taken Comments Blood Pressure 126/76 12/26/2020 12:41 PM EDT Pulse - - Temperature - - Respiratory Rate - - Oxygen Saturation - - Inhaled Oxygen Concentration - - Weight - - Height - - Body Mass Index - - documented in this encounter Plan of Treatment Not on file documented as of this encounter Visit Diagnoses Not on filedocumented in this encounter Care Teams Anesthesia Attending Relationship Specialty Start Date End Date Debra Yip APRN [address] [place] [address] PCP - General 02/07/21 09/08/22 Adeel Gomez MD [address] [address] PCP - General Internal Medicine 09/09/22 [facility] dentistry Dental Student Dental Supervisor Lead Burning 03/25/21 Kelly Moreno DMD [address] [facility] [place] [address] Dentist Dental Supervisor Lead Burning 03/25/2109/08 Smitha Alfredo APRN, DNP [id number] [place] [address] Nurse Practitioner Neurosurgery 10/23/21 Teresa Schmitt DMD [address] [facility] [address] [place] [address] Dentist 09/08/22 Kevon Leger MD [address] [facility] [address] [place] [address] Service Attending Neurology 09/09/22 documented as of this encounter
--- OUTSIDE RECORDS SUMMARY | 2024-08-14 12:01 | XMS_ITS | Encounter Summary ---
Author Organization [facility] Address [address] [place] [address] Care Team Providers Care Industrial Spray Painter Name Role Phone Madhavi Coreas Unavailable Unavailable Smitha Alfredo APRN, DNP Unavailable [phone] Teresa Schmitt DMD Unavailable [phone] Kevon Leger MD Unavailable [phone] Adeel Gomez MD Primary Care Provider + [phone] Encounter Details Date Type Department Care Team (Latest Contact Info) Description 07/29/2023 Travel Social History Tobacco Use Types Packs/Day [...] documented as of this encounter Care Teams Industrial Spray Painter Relationship Specialty Start Date End Date Adeel Gomez MD [address] [place] [address] PCP - General Internal Medicine 09/09/22 [facility] dentistry Dental Student Dental Supervisor Fabrication And Assembly 03/25/21 Smitha Alfredo APRN, KARLENE [address] [place] [address] Nurse Practitioner Neurosurgery 10/23/21 Teresa Schmitt, DMD [address] [address] Dentist 09/08/22 Kevon Leger MD [address] [place] [address] Service Attending Neurology 09/09/22 documented as of this encounter
--- OUTSIDE RECORDS SUMMARY | 2024-08-14 12:01 | XMS_ITS | Encounter Summary ---
Author Organization [facility] Address [address] [place] [address] Care Team Providers Care Pump House Operator Name Role Phone Madhavi Coreas Unavailable Unavailable Smitha Alfredo APRN, DNP Unavailable [phone] Teresa Schmitt DMD Unavailable Kevon Leger MD Unavailable [phone] Adeel Gomez MD Primary Care Provider [phone] Encounter Details Date Type Department Care Team (Late st Contact Info) Description 02/25/2024 Telephone [place] [facility] [address] [place] [address] Sven Lujan MD [address] [place] [address] Social History Tobacco Use Types [...] on file documented as of this encounter Miscellaneous Notes * Telephone Encounter - Fareed Tapia - 02/25/2024 8:51 AM EDT Called patient to confirm 6-5 appt. Patient said she planned to call today and cancel. I asked if she wanted to reschedule, or cancel altogether, she said cancel. documented in this encounter Plan of Treatment [...] documented as of this encounter Care Teams Pump House Operator Relationship Specialty Start Date End Date Adeel Gomez MD [address] [place] [address] PCP - General Internal Medicine 09/09/[address] [facility] dentistry Dental Student Dental Correctional Case Manager 03/25/21 Smitha Alfredo APRN, DNP [address] [place] [address] Nurse Practitioner Neurosurgery 10/23/21 Teresa Schmitt, DMD [address] [phone] Dentist 09/08/22 Kevon Leger MD [address] [place] [address] Service Attending Neurology 09/09/22 documented as of this encounter
--- OUTSIDE RECORDS SUMMARY | 2024-08-14 12:01 | XMS_ITS | Encounter Summary ---
Author Organization [facility] Address [address] [place] [address] Care Team Providers Care Enroute Controller Name Role Phone Madhavi Coreas Unavailable Unavailable Smitha Alfredo APRN, DNP Unavailable [phone] Oskar Teresa K DMD Unavailable [phone] Kevon Leger MD Unavailable [phone] Adeel Gomez MD Primary Care Provider + [phone] Reason for Visit * Reason Comments Consult Encounter Details Date Type Department Care Team (Late st Contact Info) Description 09/09/2022 11:00 AM EST Consult [place] [facility] [address] [place] [address] Kevon Leger MD [address] [place] [address] Cerebrovascular accident (CVA) due to embolism of right middle cerebral artery (CMS/HCC) (Primary Dx); Hemiparesis of left nondominant side due to cerebrovascular disease (CMS/HCC); Gait difficulty; Orthostasis Social History Tobacco Use Types Packs/Day Years [...] Sign Reading Time Taken Comments Blood Pressure 118/76 09/09/2022 11:11 AM EST Pulse - - Temperature - - Respiratory Rate - - Oxygen Saturation 97% 09/09/2022 11:11 AM EST Inhaled Oxygen Concentration - - Weight 69.9 kg (154 lb) 09/09/2022 11:11 AM EST Height 162.6 cm (5' 4 ) 09/09/2022 11:11 AM EST Body Mass Index 26.43 09/09/2022 11:11 AM EST documented in this encounter Miscellaneous Notes * Progress Notes - Kevon Leger MD - 09/09/2022 11:00 AM EST Subjective Lida Mejía presents to the [facility] as a returning patient today with/for Consult. The patient is a 77 year-old person whose medical problems are significant for prior ischemic stroke (residual left hemiparesis), prior lumbar spine surgeries (status post lumbar microdiskectomy x3),patent foramen ovale (status post closure), sleep apnea (using CPAP), depression, anxiety, occipital neuralgia, and migraine headaches who was evaluated in the [facility] Stroke clinic for follow-up of prior stroke and gait complaints. The patient normally follows with Dr. Teresa Lemons, but was seen today as the patient reported feeling more unsteady and wanted a follow-up as soon as possible, but Dr. Lemons was not available. The patient last saw Dr. Lemons on 26 December 2020. The patient was accompanied by her , who helped provide the story. Briefly, the patient had her first stroke [...] was closed by Cardiology in October 2018. A 30 day event monitor was unremarkable for atrial fibrillation. Hypercoagulable workup from 2019 was notable only for an elevated factor eight. Vascular imaging has previously been unremarkable. The patient remains on clopidogrel and atorvastatin secondary stroke prophylaxis. She is on clopidogrel as she previously had strokes on aspirin and wanted to take clopidogrel instead. Patient also has a history of unsteady gait, falls, and tremor. She has a history of cervical spinestenosis for which she has previously been seen [...] Her imaging (MRI lumbar spine, August 2021) reportedly demonstrates a left L4-L5 disc herniation. She was referred to pain management for an epidural steroid injection and was started on a trial of cyclobenzaprine. A prior MRI of the cervical spine from February 2021 noted mild to moderate spondylitic disease worse at C6-C7 with thereis moderate bilateral neural foraminal narrowing. In addition to being evaluated by Dr. Lemons in the Stroke Clinic, the patient has seen Dr. Brown in the [facility] Movement Disorders Clinic (December 2018). Dr. Brown felt that the unsteady gait and falls were likely related to prior stroke and peripheral neuropathy. He did not suspect parkinsonism. Labs to further investigate ataxia, unsteady gait, and peripheral neuropathy been unremarkable: B12, MMA, vitamin E, RPR (10/05/2018); TSH (06/2018); folate, SPEP, HIV (05/02/2019). Heavy metals screen, including copper and zinc (12/05/2018) only showed mildly elevated thallium which was WNL on repeat testing (12/14/2018). She had an EMG/NCS from 03 October 2021 that noted mild slowing of left fibular nerve conduction suggestive of a very mild left fibular neuropathy that could not be further localized. The EMG of the left leg was normal and without evidence of radiculopathy, myopathy, or generalized neuropathy. Over the last year, she has had progressive worsening of wobbling and veering to the left when trying to ambulate. She cannot recall when the problem began, but it's been worsening this year. According to the patient, Dr. Lemons previously advised her to use a cane. The patient's said that this was during their visit last year and that the patient does not usually use the cane. She did not come today with an assistive device. The patient's said that she last completed physicaltherapy probably 3-4 years ago. The patient reported that toward the end of the day when she is tired or exhausted, she notices her walking difficulty, particularly with her left leg, to be more prominent. She has also been having episodes of vertigo with turning to the right while lying in the bed that happen 1-2 times a week. She said that she feels like she wants to go backwards when she stands up quickly. This will passif she remains stationary for several seconds. She said that she does not feel like she has very good hydration. The patient has had no recent sudden onset weakness, speech difficulty vision loss, or sensory changes turning for a new stroke. The patient denied any recent injuries, illnesses, hospitalizations, or medication changes. The patient has had no issues with secondary stroke prophylaxis medications: clopidogrel 75 mg daily atorvastatin 40 mg daily Past Medical History: Diagnosis Date Cerebral cysts Neuroepithelial cyst Laceration without foreign body of unspecified eyelid and periocular area, initial encounter Laceration of eyelid without involvement of lid margin Migraine, unspecified, not intractable, without status migrainosus Migraine Personal history of other diseases of the nervous system and sense organs History of cataract Personal history of other diseases of the nervous system and sense organs History of sleep apnea Personal history of other diseases of the respiratory system History of chronic obstructive lung disease Personal history of other mental and behavioral disorders History of anxiety Personal history of other mental and behavioral disorders History of depression Personal history of other specified conditions History of dizziness Family History Problem Relation Name Age of Onset Lung disease Mother Other cancer Father Other cancer Sister Past Surgical History: Procedure Laterality Date BACK SURGERY N/A Lower Back Surgery from [facility] PATENT FORAMEN OVALE CLOSURE N/A Patent foramen ovale repair from [facility] Social History Tobacco Use Smoking status: Former Smokeless tobacco: Never Substance Use Topics Alcohol use: Not Currently Comment: Ocassionally Current Outpatient Medications on File Prior to [...] by mouth 1 (one) time each day. gabapentin (Neurontin) 100 MG capsule Take by mouth. hydrOXYzine HCl (Atarax) 25 MG tablet Take 0.5 tablets by mouth 2 (two) times a day. Vortioxetine HBr (Trintellix) 20 MG tablet Take by mouth 1 (one) time each day. [DISCONTINUED] budesonide-formoterol (Symbicort) 160-4.5 MCG/ACT inhaler Inhale 2 (two) times a dayif needed. (Patient not taking: Reported on 09/09/2022) [DISCONTINUED] cyclobenzaprine (Flexeril) 5 MG tablet Take 1 tablet (5 mg total) by mouth 2 (two) times a day. (Patient not taking: Reported on 09/09/2022) 40 tablet 0 No current facility-administered medications on file prior to visit. Allergies Allergen Reactions Morphine Itching All medications have been reviewed today. Objective Vitals: 09/09/22 1111 BP: 118/76 SpO2: 97% Physical Exam Constitutional: Patient in no acute [...] appreciable deficit in cranial nerves II-XII. Motor: Normal tone and bulk throughout. Left upper extremity 5/5. Right upper extremity 5/5. Left lower extremity 4+/5 with hip flexion, 4/5 with dorsiflexion, 5/5 elsewhere. Right lower extremity 4+/5 with hip flexion, 5/5 elsewhere. Sensory: The patient reported intact sensation to light touch and vibration in the upper extremities bilaterally. Reduced sensation to light touch and vibration distally, more prominent in the left leg compared to the right leg. Reflexes: Reflexes 2+ brisk throughout. Coordination: Mild upper extremity ataxia with [id number] testing. No appreciable leg ataxia. No dysdiadochokinesia. Romberg negative. Gait: Slightly antalgic gait. Limited left foot dorsiflexion. Imaging/Study Summary: I personally viewed the images of the patient's MRI brain from 08 November 2018, which demonstratedencephalomalacia in the right parietal lobe consistent with a prior embolic ischemic stroke. Assessment/Plan: Diagnosis Plan 1. Cerebrovascular accident (CVA) due to embolism of right middle cerebral artery (CMS/HCC) 2. Hemiparesis of left nondominant side due to cerebrovascular disease (CMS/HCC) 3. Gait difficulty Ambulatory referral to Physical Therapy 4. Orthostasis The patient's prior right parietal stroke appears embolic, and was likely related to her patent foramen ovale, which has since been closed. For secondary stroke prophylaxis, she remains on clopidogrel and atorvastatin. We emphasized the importance of continuing her medication as well as continuing to optimize her comorbid conditions to reduce her overall stroke risk in the future. Her reported issues on her left side are probably a combination of post stroke left hemiparesis as well as her lumbar spine pathology resulting in left leg pain. We discussed that as she ages, she may notice loss ofsome of her compensation for her left hemiparesis resulting from the prior stroke. She may also notice that her left leg symptoms related to her lumbar pathology worsen over time. Regarding her reported gait difficulty and balance issues, we will refer her to Physical therapy for further evaluation. We also encouraged her to use the cane that she was previously advised to use. Her paroxysmal positional vertigo on turning to the right may be related to otolith repositioning. Since it is not occurring very frequently, I do not know how much she would benefit from repositioning maneuvers, but weadvised her to discuss the possibility of vestibular rehab with physical therapy. Her reported diseq uilibrium/lightheadedness on standing that resolves after several seconds likely reflects her previously noted orthostasis. We encouraged her to maintain good hydration as well as pause for several seconds prior to ambulation. -Continue clopidogrel 75 mg daily for secondary prevention of stroke -Continue atorvastatin 40 mg daily for secondary stroke prevention, goal LDL <70 -Encouraged optimization of comorbid conditions and appropriate lifestyle changes to reduce future stroke risk -BP control with goal <130/80 -glycemic control with goal of euglycemia -encouraged good hydration -referral to physical therapy for gait difficulty (outside [place]); encouraged to use cane as needed -Return to stroke clinic in six months Modified Gibson Scale Score: Counseling Documentation: The patient and was counseled regarding prognosis, risks and benefit of treatment options, risk factor reductions, instructions for management, patient and family education, impressions, and importance of compliance with treatment. Education provided was verbal counseling. I spent 83 minutes on the day of the encounter providing care including reviewing prior records, personally visualizing available neuroimaging, reviewing prior labs/studies, obtaining history from the patient/family, discussing the management plan with the patient/family, counseling the patient/family, entering orders, and documentation of the encounter. documented in this encounter Plan of Treatment Not on file documented as of this encounter Visit Diagnoses Diagnosis Cerebrovascular accident (CVA) due to embolism of right middle cerebral artery (CMS/HCC)- Primary Hemiparesis of left nondominant side due to cerebrovascular disease (CMS/HCC) Gait difficulty Abnormality of gait Orthostasis Orthostatic hypotension documented in this encounter Additional Health Concerns Assessment Noted Time A fall risk assessment has been complete d for the patient 09/09/2022 11:13 AM EST documented as of this encounter Care Teams Enroute Controller Relationship Specialty Start Date End Date Adeel Gomez MD [address] [place] [address] PCP - General Internal Medicine 09/09/22 Joss [facility] of dentistry Dental Student Dental International Trade Analyst 03/25/21 Smitha Alfredo APRN, DNP [address] [place] [address] Nurse Practitioner Neurosurgery 10/23/21 Teresa Schmitt DMD [address] [address] Dentist 09/08/22 Kevon Leger MD [address] [place] [address] Service Attending Neurology 09/09/22 documented as of this encounter
[2024-08-14 12:58] LABS: Iron 89 ug/dL (37-170)
[2024-08-14 13:07] LABS: Total Iron Binding Capacity 345 ug/dL (265-497)
[2024-08-14 13:34] LABS: Ferritin 35.1 ng/ml (11.1-264)
[2024-08-14 13:44] LABS: 25-OH Vitamin D, Total 33.7 ng/mL (30-100)
[2024-08-14 14:39] LABS: Vitamin B12 701 pg/mL (239-931)
[2024-08-14 14:52] LABS: Folate > 20.00 ng/mL
== END 2024-08-14 23:59 | disposition home or self-care (01) ==
LOC: LAB 11:59
PROVIDERS: PCP Internal Medicine Adolescent Medicine; Visit Provider Physician Assistant
DX: R06.09 Other forms of dyspnea (principal); R07.89 Other chest pain; R60.0 Localized edema; I50.9 Heart failure, unspecified; E55.9 Vitamin D deficiency, unspecified
CPT/HCPCS: 36415; 82306; 82607; 82728; 82746; 83540; 83550

== ENCOUNTER 2024-08-23 11:00 | Outpatient (RCR) | payer MEDICARE, OTHER, SELFPAY | END 2024-08-23 23:59 | disposition home or self-care (01) | LOC: PT 11:00 | PROVIDERS: PCP Internal Medicine Adolescent Medicine; Visit Provider Physician Assistant | DX: M54.42 Lumbago with sciatica, left side (principal) | CPT/HCPCS: 97014; 97035; 97110; 97140; 97163; G0283 ==

== ENCOUNTER 2024-08-28 08:21 | Outpatient (CLI) | payer MEDICARE, OTHER, SELFPAY ==
[2024-08-28 17:36] LABS: Influenza A, PCR Not Detected (NotDetected); Influenza B, PCR Not Detected (NotDetected)
[2024-08-28 20:19] LABS: Coronavirus 19, PCR Detected (NotDetected)
== END 2024-08-28 23:59 | disposition home or self-care (01) ==
LOC: LAB.DROPOF 08-29 13:53
PROVIDERS: PCP Student in an Organized Health Care Education/Training Program; Visit Provider Student in an Organized Health Care Education/Training Program
DX: R50.9 Fever, unspecified (principal)
CPT/HCPCS: 87636

== ENCOUNTER 2024-09-18 07:53 | Outpatient (CLI) | payer MEDICARE, OTHER, SELFPAY ==
[2024-09-18 08:50] VITALS: PULSE 68; PULSE 72
[2024-09-18] MEDS: ALBUTEROL 0.083% 2.5 MG/3 ML NEB IH (08:50)
--- NOTE | 2024-09-18 09:31 | CT_ITS ---
FINAL REPORT CLINICAL HISTORY: cp COMPARISON: Axial images through the chest were performed by computed tomography. This study was performed with techniques to keep radiation doses as low as reasonably achievable, (ALARA). Individualized dose reduction techniques using automated exposure control or adjustment of mA and/or kV according to the patient's size were employed. FINDINGS: CT CHEST WITH AND WITHOUT CONTRAST: There is no axillary adenopathy. There is no evidence of thoracic aortic aneurysm or dissection. There is no hilar or mediastinal adenopathy. The heart size is normal. There is no pericardial or pleural effusion. Limited images of the upper abdomen are unremarkable. No suspicious infiltrate or nodule identified. No obvious rib fracture or focal bony lesion is seen. IMPRESSION: No evidence of thoracic aortic aneurysm, dissection, obvious rib fracture or focal bony lesion. Reviewed, Interpreted and Dictated by Nicole Oden MD Transcribed by Stacie England Authenticated and [facility] [place] [place]
[2024-09-18 09:52] LABS: Blood Urea Nitrogen 15 mg/dl (7-17); Estimated Glomerular Filt Rate 81 ml/min (>60); GFR (African American) 98 ML/MIN (>60)
[2024-09-18] MEDS: SODIUM CHLORIDE 0.9% 10ML SYR (RAD ONLY) 10 ML IV (10:21)
[2024-09-18] MEDS: IOPAMIDOL-370 (76%);100ML BOTTLE 75 ML IV (10:22)
== END 2024-09-18 23:59 | disposition home or self-care (01) ==
LOC: RT 07:55
PROVIDERS: PCP Internal Medicine Adolescent Medicine; Visit Provider Physician Assistant
DX: R06.09 Other forms of dyspnea (principal); R07.89 Other chest pain; R60.0 Localized edema
CPT/HCPCS: 36415; 71270; 82565; 84520; 94060; 94640; 94726; 94729; J7613; Q9967

== ENCOUNTER 2024-10-30 13:33 | Emergency (ER) | payer MEDICARE, OTHER, SELFPAY ==
[2024-10-30 13:47] VITALS: BMI 23.0
--- NOTE | 2024-10-30 13:48 | XR_ITS ---
PROCEDURE INFORMATION: Exam: XR Left Hand Exam date and time: 10/30/2024 1:59 PM Age: 79 years old Clinical indication: Pain; Finger(s); Left; Additional info: Smashed finger TECHNIQUE: Imaging protocol: Radiologic exam of the left hand. Views: 3 or more views. COMPARISON: CR XR HAND LT MIN 3V 10/30/2024 1:59 PM FINDINGS: Bones/joints: osseous structures of the hand are without an acute process. Distal radioulnar joint and radiocarpal joints grossly normal. Carpus without fracture. Metacarpals and phalangeal without fracture or dislocation. No erosive changes or periarticular calcifications. mild degenerative changes first carpometacarpal joint. Soft tissues: Normal. IMPRESSION: Mild degenerative changes first carpometacarpal joint. A fracture is not visualized.
--- NOTE | 2024-10-30 14:40 | ED_ITS ---
Discharge Plan Disposition Patient Disposition: Home, Self-Care Condition: Good Prescriptions Prescriptions: No Action multivitamin with iron [Daily Multiple Vitamins/Iron] Tablet 1 tab PO DAILY gabapentin 100 mg capsule 100 mg PO HS PRN (Reason: .) budesonide-formoterol [Breyna] 160-4.5 mcg/actuation HFA aerosol inhaler 2 puff inhalation Patient Comments: INHALE 2 PUFFS BY MOUTH 2 TIMES A DAY carvedilol 3.125 mg tablet 3.125 mg PO BID Qty: 60 2RF Rx Instructions: must administer with a meal/food vortioxetine [Trintellix] 20 mg tablet 20 mg PO ONCE atorvastatin [Lipitor] 40 mg tablet 40 mg PO DAILY Qty: 90 famotidine [Pepcid] 20 mg tablet 20 mg PO BID Patient Comments: TAKE 1 TABLET BY MOUTH TWICE DAILY Premarin 0.625 mg/gram cream 0.625 mg vaginal QHS Qty: 30 2RF Rx Instructions: Use blueberry size amount every night for 14 days followed by twice weekly thereafter hydroxyzine pamoate [Vistaril] 25 mg capsule 25 mg PO QHS PRN (Reason: bp) Jardiance 10 mg tablet 10 mg PO DAILY Qty: 90 2RF Entresto 24-26 mg tablet 1 tab PO BID Qty: 90 2RF Xarelto 20 mg tablet 20 mg PO DAILY Qty: 90 3RF Rx Instructions: must administer with evening meal spironolactone [Aldactone] 25 mg tablet 25 mg PO DAILY Qty: 90 3RF benzonatate 200 mg capsule See Rx Instructions .ROUTE .COMPLEX Qty: 21 3RF Dose Instruction: TAKE 1 CAPSULE BY MOUTH THREE TIMES DAILY NEEDED FOR COUGH, SWALLOW WHOLE DO NOT CHEW Rx Instructions: TAKE 1 CAPSULE BY MOUTH THREE TIMES DAILY NEEDED FOR COUGH, SWALLOW WHOLE DO NOT CHEW Referrals Follow up/Referrals: Zackary Douglass DO [Staff Physician] - See instructions Adeel Gomez MD [Primary Care Provider] - See instructions Activity Restrictions/Add. Instructions Additional Instructions/Restrictions: Rest the extremity, Elevate the extremity as tolerated while you are resting. Take tylenol or ibuprofen for pain. Follow up with Dr. Douglass (orthopedics) if you continue to have symptoms. I put in a referral but you need to call his office and schedule an appointment. Follow up with your regular doctor. GO TO THE ER FOR ANY WORSENING SYMPTOMS Clinical Impressions Clinical Impression: Contusion of left middle finger, Injury of nail bed of finger Instructions Patient Instructions: DI for Nail Bed Injury Print Language Print Language: Ukrainian Discharge ED Provider: Aldair Vieira [facility] HPI General Stated complaint: AO-Pain and swelling L middle finger Time Seen by Provider: 10/30/24 14:40 Related Data Home Medications ?Medication ?Instructions ?Recorded ?Confirmed vortioxetine 20 mg tablet 20 mg PO ONCE Depression 11/19/17 10/16/24 (Trintellix) atorvastatin 40 mg tablet (Lipitor) 40 mg PO DAILY Cholesterol #90 tabs 05/04/19 10/16/24 multivitamin with iron (Daily 1 tab PO DAILY 08/12/22 10/16/24 Multiple Vitamins with Iron tablet) famotidine 20 mg tablet (Pepcid) 20 mg PO BID 08/09/23 10/16/24 gabapentin 100 mg capsule 100 mg PO HS PRN . 05/24/24 10/16/24 hydroxyzine pamoate 25 mg capsule 25 mg PO QHS PRN bp 09/08/24 10/16/24 (Vistaril) budesonide-formoterol HFA 160 2 puff inhalation 10/16/24 10/16/24 mcg-4.5 mcg/actuation aerosol inhaler (Breyna) Previous Rx's ?Medication ?Instructions ?Recorded Premarin 0.625 mg/gram vaginal 0.625 mg vaginal QHS #30 grams 08/24/23 cream (conjugated estrogens) empagliflozin 10 mg tablet 10 mg PO DAILY #90 tabs 08/28/24 (Jardiance) sacubitril 24 mg-valsartan 26 mg 1 tab PO BID #90 tabs 08/28/24 tablet (Entresto) rivaroxaban 20 mg tablet (Xarelto) 20 mg PO DAILY #90 tabs 08/31/24 spironolactone 25 mg tablet 25 mg PO DAILY #90 tabs 09/25/24 (Aldactone) benzonatate 200 mg capsule See Rx Instructions .Route 10/04/24 .COMPLEX #21 caps carvedilol 3.125 mg tablet 3.125 mg PO BID #60 tabs 10/16/24 Allergies Allergy/AdvReac Type Severity Reaction Status Date / Time morphine Allergy Mild I-ITCHING Verified 10/16/24 09:03 [facility] Disclaimer: The information contained in this section may have been updated after the patient was seen, as this information can be updated by other users. Medical History (Updated 10/30/24 @ 15:25 by Aldair Vieira APRN) Obstructive lung disease Cough Edema, lower extremity HFrEF (heart failure with reduced ejection fraction) Paroxysmal atrial fibrillation LV dysfunction HFrEF (heart failure with reduced ejection fraction) Obstructive sleep apnea Carotid arterial disease History of CVA (cerebrovascular accident) PFO (patent foramen ovale) Dyspnea Cardiomyopathy Angina pectoris RLQ abdominal pain Pelvic pain in female Dyspareunia in female Vaginal atrophy Stroke CVA (cerebral vascular accident) Surgical History Hx of cataract removal with insertion of prosthetic lens History of back surgery History of cholecystectomy Family History Other Cancer Social History Smoking Status: Former smoker alcohol intake: never substance use type: denies use current occupational status: retired Travel in the last 8 weeks: Inside the [place] household members: spouse housing: house current occupational exposures/hazards: Yes caffeine: No Have you lived/traveled outside [place] in past 30 days?: No Contact w/someone who lives/traveled outside [place] past 30 days?: No Exposure to someone with infectious disease in past 14 days?: No Do you have a fever (greater than 100.4 F or 38 C)?: No Have you tested positive for COVID-19: No Exposed to someone with COVID-19 in past 14 days?: No Do you have a sore throat?: No Do you have a cough?: No Do you have any weakness?: No Do you have any diarrhea?: No Are you experiencing any unusual bleeding?: No Do you have any muscle aches/pain?: No Do you have any abdominal pain?: No Are you experiencing loss of taste or smell?: No ROS Obtained: Yes All systems reviewed & no additional complaints except as documented Constitutional Constitutional: Denies chills and Denies fever(s) Eyes Eyes: Denies eye discharge ENT Ears, Nose, Mouth, and Throat: Denies dizziness, Denies otalgia and Denies sore throat Cardiovascular Cardiovascular: Denies chest pain Respiratory Respiratory: Denies shortness of breath, Denies chest congestion, Denies cough, Denies stridor and Denies wheezing Gastrointestinal Gastrointestingal: Denies nausea or vomiting Musculoskeletal Musculoskeletal: Reports as per HPI Integumentary/Breasts Skin/Breast: Denies redness, Denies rash and Reports wounds Neurologic Neurologic: Denies dizziness and Denies paresthesias Allergic/Immunologic Allergic/Immunologic: Denies wheezing Physical Exam General General appearance: alert and in no apparent distress Head Head exam: atraumatic, normocephalic and normal inspection Eye Eye exam: Present normal appearance, PERRL and EOMI ENT ENT exam: Present normal exam, normal oropharynx, mucous membranes moist, TM's normal bilaterally and normal external ear exam Neck Neck exam: Present normal inspection, full ROM and trachea midline; Absent meningismus or lymphadenopathy Chest Chest inspection: Present normal inspection and symmetric chest wall rise; Absent tenderness Respiratory Respiratory exam: Present normal lung sounds bilaterally; Absent respiratory distress Cardiovascular Cardiovascular exam: Present regular rate and normal rhythm; Absent JVD Abdominal Exam Abdominal exam: Present soft and normal bowel sounds; Absent distention, tenderness or guarding Extremities Exam Extremities exam: Present normal inspection, full ROM and normal capillary refill; Absent calf tenderness Back Exam Back exam: Present normal inspection; Absent tenderness Neurological Exam Neurological exam: Present alert and oriented X3 Psychiatric Psychiatric exam: Present normal affect and normal mood Skin Skin exam: Present warm, dry, intact and normal color Lymphatic Lymphatic Findings: no adenopathy Medical Decision Making Medical Records Medical records reviewed: No I reviewed the patient's medical records. Screening: Per USPSTF and CDC recommendations, given the prevalence of disease in our [facility], it is our hospital?s policy to screen for HIV and viral Hepatitis for all patients aged 18 and over and those with ongoing risk factors. Aime Inquiry Pt receiving controlled substance: No Lab Data Lab results reviewed: Yes I reviewed the patient's lab results. Orders (Tests/Meds): ORDERS Category Date Time Status XR hand LT min 3V Stat Exams 10/30/24 13:48 Completed
[2024-10-30 14:43] VITALS: BP 115/69; PULSE 75; RESP 16; TEMP 36.6; O2SAT 94; BMI 23.0
[2024-10-30 15:28] VITALS: BP 116/72; PULSE 70; RESP 16; TEMP 36.7; O2SAT 95
== END 2024-10-30 15:29 | disposition home or self-care (01) ==
PROVIDERS: Emergency Provider Nurse Practitioner Family; PCP Internal Medicine Adolescent Medicine
DX: S60.132A Contusion of left middle finger with damage to nail, initial encounter (principal)
CPT/HCPCS: 73130; 99212; G0381

== ENCOUNTER 2024-11-08 14:20 | Outpatient (CLI) | payer MEDICARE, OTHER, SELFPAY ==
--- NOTE | 2024-11-08 14:23 | MM_ITS ---
PROCEDURE INFORMATION: Exam: MG Bilateral Screening 3D Mammography Exam date and time: 11/08/2024 2:52 PM Age: 79 years old Clinical indication: Screening examination TECHNIQUE: Imaging protocol: Bilateral Screening tomosynthesis and 2D mammography including computer-aided detection (CAD) when performed. COMPARISON: 1. MG MM DIG SCREENING MAMM BI W/CAD 08/10/2022 8:42 AM 2. MG DIG MAMM-SCREEN WYATT 04/18/2019 11:49 AM FINDINGS: MAMMOGRAPHY: Breast composition: There are scattered areas of fibroglandular density. Mass: None. Architectural distortion: None. Calcifications: No suspicious calcifications. Asymmetric density: None. Skin thickening: None. Axillary adenopathy: None. IMPRESSION: No mammographic evidence of malignancy. Annual screening is recommended unless otherwise clinically indicated. ASSESSMENT: BI-RADS Category 1: Negative.
--- NOTE | 2024-11-08 14:23 | XR_ITS ---
FINAL REPORT TECHNIQUE: Bone densitometry calculations of the lumbar spine and left hip were obtained. CLINICAL HISTORY: SCREENING FINDINGS: Using L1-4, the bone mineral density of the spine is 1.24 g/cm2, corresponding to T-score of 1.8. Using the left hip, the bone mineral density of the femoral neck is 0.687 g/cm2, corresponding to a T-score of -1.5. Using the right hip, the bone mineral density of the femoral neck is 0.656 g/cm2, corresponding to a T-score of -1.7. NOTE: T-score: Standard deviation compared with peak bone mass of young adult mean. *Following the recommendations of the International Society of Bone densitometry, classification of hip BMD is based on the lower of two T-scores; total hip or femoral neck. IMPRESSION: Normal bone mineral density of the lumbar spine. Diminished bone mineral density of both hips consistent with osteopenia. FRAX data reports risk of 17% major osteoporotic fracture and 4.3% hip fracture. Reviewed, Interpreted and Dictated by Nicole Oden MD Transcribed by Becka Tapia Authenticated and [facility]
== END 2024-11-08 23:59 | disposition home or self-care (01) ==
LOC: RAD 14:21
PROVIDERS: PCP Internal Medicine Adolescent Medicine; Visit Provider Nurse Practitioner Family
DX: Z12.31 Encounter for screening mammogram for malignant neoplasm of breast (principal); M85.88 Other specified disorders of bone density and structure, other site
CPT/HCPCS: 77063; 77067; 77080

== ENCOUNTER 2025-03-16 07:43 | Outpatient (CLI) | payer MEDICARE, OTHER, SELFPAY ==
--- OUTSIDE RECORDS SUMMARY | 2025-03-16 07:45 | XMS_ITS | Clinical Summary ---
Author Organization [facility] Address [address] [place] [address] Care Team Providers Care Other Sports Official Name Role Phone Madhavi Coreas Unavailable Unavailable Smitha Alfredo APRN, DNP Unavailable AshudaTeresa wood DMD Unavailable [phone] Kevon Leger MD Unavailable [phone] Adeel Gomez MD Primary Care Provider [phone] Allergies Active Allergy Reactions Criticality Noted Date [...] Screening 1945 [facility]-Medicare Annual Wellness (AWV) 1945 [facility]-Infant/Child/Adol SDOH Screenings 1945 [facility]- SDOH Screenings 1965 [facility]-Adult SDOH Screenings 1965 [facility]-Zoster Vaccines (1 of 2) 1997 [facility]-Pneumococcal Vaccine: 50+ Years (2 of 2 - PCV) 04/18/2021 04/18/2020, 07/26/2002 [facility]-RSV Vaccine: 60+ Years or (1 - 1-dose 75+ series) 2022 [id number] Vaccine ( - season) 2024 04/18/2022, 07/16/2021, 11/20/2020, Additional history exists [facility]-Influenza Vaccine (Season Ended) 2025 07/06/2022, 06/11/2021, 07/08/2020, Additional history exists [facility]-DTaP,Tdap,and Td Vaccines (2 - Td or Tdap) 04/13/2030 04/13/2020, 02/16/2007 [facility]-Hepatitis C Screening Completed 07/03/2018 [facility]-Hepatitis A Vaccines Aged Out 08/09/2018, 04/2018 No longer eligible based on patient's age to complete this topic [facility]-Obesity Intervention Completed 07/29/2023, 08/27 HPV Vaccines Aged Out No longer eligi ble based on patient's age to complete this topic [facility]-HIB Vaccines Aged Out No longer e [...] Recently Relevant to Health Maintenance Results * Alber Hepatitis C Antibody (07/03/2018 2:48 PM EDT) [facility] Hepatitis C Ab NEGATIVE Reference Range: Negative SUNQUEST 07/03/2018 2:48 PM EDT 07/03/2018 2:52 PM EDT Flor Mars MD LAB BLOOD ORDERABLES Final Resu lt SUNQUEST from Last 3 Months or Most Recently Relevant to Health Maintenance Insurance MEDICARE [facility] Care Teams Other Sports Official Relationship Specialty Start Date End Date Adeel Gomez MD [address] [place] [address] PCP - General Internal Medicine 09/09/22 [facility] Dental Deicer Repairer 03/25/21 Smitha Alfredo APRN, DNP [address] [place] [address] Nurse Practitioner Neurosurgery 10/23/21 Teresa Schmitt, DMD [address] [place] [phone] Dentist 09/08/22 Kevon Leger MD [address] [place] [phone] Service Attending Neurology 09/09/22
--- OUTSIDE RECORDS SUMMARY | 2025-03-16 07:45 | XMS_ITS | Encounter Summary ---
Author Organization [facility] Address [address] [place] [address] Care Team Providers Care Client Relations Representative Name Role Phone Debra Yip LITZY Primary Care Provider + [phone] Madhavi Coreas Unavailable Unavailable Kelly Moreno DMD Unavailable [phone] Smitha Alfredo APRN, DNP Unavailable [phone] AshuTeresa thayer Zeferino DMD Unavailable [phone] Kevon Leger MD Unavailable [phone] Adeel Gomez MD Primary Care Provider [phone] Encounter Details Date Type Department Care Team (Late st Contact Info) Description 02/15/2021 [facility] [address] [place] [address] Smitha Alfredo APRN, DNP [address] [place] [address] Social History Tobacco Use Types [...] on filedocumented in this encounter Care Teams Client Relations Representative Relationship Specialty Start Date End Date Debra Yip APRN [address] [facility] [address] [place] [address] PCP - General 02/07/21 09/08/22 Adeel Gomez MD [address] [facility] [address] [place] [address] PCP - General Internal Medicine 09/09/22 [facility] Dental Student Dental Passenger Car Inspector 03/25/21 Kelly Moreno DMD [address] [facility] [place] [phone] Dentist Dental Passenger Car Inspector 03/25/2109/08 Smitha Alfredo APRN, DNP [address] [facility] [place] [address] Nurse Practitioner Neurosurgery 10/23/21 Teresa Schmitt DMD [address] [facility] [address] [place] [phone] Dentist 09/08/22 Kevon Leger MD [address] [facility] [address] [place] [phone] Service Attending Neurology 09/09/22 documented as of this encounter
--- OUTSIDE RECORDS SUMMARY | 2025-03-16 07:45 | XMS_ITS | Encounter Summary ---
Author Organization [facility] Address [address] [place] [address] Care Team Providers Care Online Media Director Name Role Phone Debra Yip APRN Primary Care Provider + [phone] Madhavi Coreas Unavailable Unavailable Kelly Moreno DMD Unavailable [phone] Smitha Alfredo APRN, DNP Unavailable [phone] Teresa Schmitt DMD Unavailable [phone] Kevon Leger MD Unavailable [phone] Adeel Gomez MD Primary Care Provider + [phone] Encounter Details Date Type Department Care Team (Late st Contact Info) Description 08/02/2020 Abstract [facility] [address] [place] [address] Dental, Provider, DDS [address] [place] [id number] Social History Tobacco Use Types Packs/Day [...] on filedocumented in this encounter Care Teams Online Media Director Relationship Specialty Start Date End Date Debra Yip APRN [address] [place] [address] PCP - General 02/07/21 09/08/22 Adeel Gomez MD [address] [place] [id number] PCP - General Internal Medicine 09/09/22 [facility] Dental Student Dental Foundry Molder 03/25/21 Kelly Moreno, DMD [address] [facility] [place] [address] Dentist Dental Foundry Molder 03/25/2109/08 Smitha Alfredo APRN, DNP [address] [place] [address] Nurse Practitioner Neurosurgery 10/23/21 Teresa Schmitt, DMD [address] [facility] [address] [place] [address] Dentist 09/08/22 Kevon Leger MD [address] [place] [address] Service Attending Neurology 09/09/22 documented as of this encounter
== END 2025-03-16 23:59 | disposition home or self-care (01) ==
LOC: RT 07:44
PROVIDERS: PCP Internal Medicine Adolescent Medicine; Visit Provider Internal Medicine Pulmonary Disease
DX: J44.9 Chronic obstructive pulmonary disease, unspecified (principal); R94.2 Abnormal results of pulmonary function studies
CPT/HCPCS: 94010; 94618

== ENCOUNTER 2025-06-17 17:59 | Emergency (ER) | payer MEDICARE, OTHER, SELFPAY ==
[2025-06-17 18:11] VITALS: BP 147/71; PULSE 70; RESP 18; TEMP 36.6; O2SAT 98; BMI 22.1
--- NOTE | 2025-06-17 18:34 | CT_ITS ---
PROCEDURE INFORMATION: Exam: CTA Head With Contrast, Arteriography Exam date and time: 06/17/2025 8:05 PM Age: 79 years old Clinical indication: Pain; Headache; Additional info: Headahce, unsteady gait TECHNIQUE: Imaging protocol: Computed tomographic angiography of the head with contrast. Exam focused on the arteries. 3D rendering (Not supervised by radiologist): MIP and/or 3D reconstructed images were created by the technologist. Radiation optimization: All CT scans at this facility use at least one of these dose optimization techniques: automated exposure control; mA and/or kV adjustment per patient size (includes targeted exams where dose is matched to clinical indication); or iterative reconstruction. Contrast material: ISOVUE; Contrast volume: 80 ml; Contrast route: INTRAVENOUS (IV); COMPARISON: CT HEAD/BRAIN WO CON 06/17/2025 8:03 PM FINDINGS: ANTERIOR CIRCULATION: Right internal carotid artery: Intracranial segment is patent with no significant stenosis. No aneurysm. Right middle cerebral artery: No occlusion or significant stenosis. No aneurysm. Right anterior cerebral artery: No occlusion or significant stenosis. No aneurysm. Left internal carotid artery: Intracranial segment is patent with no significant stenosis. No aneurysm. Left middle cerebral artery: No occlusion or significant stenosis. No aneurysm. Left anterior cerebral artery: No occlusion or significant stenosis. No aneurysm. POSTERIOR CIRCULATION: Right vertebral artery: No occlusion or significant stenosis. No aneurysm. Left vertebral artery: No occlusion or significant stenosis. No aneurysm. Basilar artery: No occlusion or significant stenosis. No aneurysm. Right posterior cerebral artery: No occlusion or significant stenosis. No aneurysm. Left posterior cerebral artery: No occlusion or significant stenosis. No aneurysm. Brain: No evidence for intracranial hemorrhage, mass lesions or acute stroke. Focus of encephalomalacia/gliosis right parietal lobe; similar to 07/03/2018 and 02/18/2024 CT and MRI studies. Small focus of low-density left basal ganglia; similar to 02/18/2024 and 07/03/2018. Mild small-vessel ischemic change in the periventricular white matter. Cerebral ventricles: No ventriculomegaly. Bones/joints: Unremarkable. No acute fracture. Soft tissues: Unremarkable. Other findings: No evidence for large vessel occlusion. IMPRESSION: 1. No evidence for large vessel occlusion. 2. No evidence for intracranial hemorrhage, mass lesions or acute stroke. 3. Focus of encephalomalacia/gliosis right parietal lobe; similar to 07/03/2018 and 02/18/2024 CT and MRI studies. 4. Small focus of low-density left basal ganglia; similar to 02/18/2024 and 07/03/2018. 5. Mild small-vessel ischemic change in the periventricular white matter.
--- NOTE | 2025-06-17 18:34 | CT_ITS ---
PROCEDURE INFORMATION: Exam: CT Head Without Contrast Exam date and time: 06/17/2025 8:03 PM Age: 79 years old Clinical indication: Pain; Headache; Additional info: Headache, unsteady gait TECHNIQUE: Imaging protocol: Computed tomography of the head without contrast. Radiation optimization: All CT scans at this facility use at least one of these dose optimization techniques: automated exposure control; mA and/or kV adjustment per patient size (includes targeted exams where dose is matched to clinical indication); or iterative reconstruction. COMPARISON: MR HEAD/BRAIN WO/W CON 02/18/2024 10:47 AM FINDINGS: Brain: No evidence for intracranial hemorrhage, mass lesions or acute stroke. Focus of encephalomalacia/gliosis right parietal lobe; similar to 07/03/2018 and 02/18/2024 CT and MRI studies. Small focus of low-density left basal ganglia; similar to 02/18/2024 and 07/03/2018. Mild small-vessel ischemic change in the periventricular white matter. Cerebral ventricles: No ventriculomegaly. Pituitary gland and sella: Negative Paranasal sinuses: Visualized sinuses are unremarkable. No fluid levels. Mastoid air cells: Visualized mastoid air cells are well aerated. Orbital cavities: Bilateral cataract extractions. Bones: Unremarkable. No acute fracture. Soft tissues: Unremarkable. Vasculature: Negative. IMPRESSION: 1. No evidence for intracranial hemorrhage, mass lesions or acute stroke. 2. Focus of encephalomalacia/gliosis right parietal lobe; similar to 07/03/2018 and 02/18/2024 CT and MRI studies. Findings consistent with remote infarct. 3. Small focus of low-density left basal ganglia; similar to 02/18/2024 and 07/03/2018. Findings may reflect enlarged perivascular space versus old lacunar infarct. 4. Mild small-vessel ischemic change in the periventricular white matter.
--- NOTE | 2025-06-17 18:34 | CT_ITS ---
PROCEDURE INFORMATION: Exam: CTA Neck With Contrast Exam date and time: 06/17/2025 8:05 PM Age: 79 years old Clinical indication: Pain; Headache; Additional info: Headache, unsteady gait TECHNIQUE: Imaging protocol: Computed tomographic angiography of the neck with contrast. Exam focused on the cervical segments of the vasculature. 3D rendering (Not supervised by radiologist): MIP and/or 3D reconstructed images were created by the technologist. Radiation optimization: All CT scans at this facility use at least one of these dose optimization techniques: automated exposure control; mA and/or kV adjustment per patient size (includes targeted exams where dose is matched to clinical indication); or iterative reconstruction. Contrast material: ISOVUE; Contrast volume: 80 ml; Contrast route: INTRAVENOUS (IV); COMPARISON: CT HEAD/BRAIN WO CON 06/17/2025 8:03 PM FINDINGS: Right common carotid artery: No stenosis. No dissection or occlusion. Right internal carotid artery: No stenosis of the extracranial segment. No dissection or occlusion. Right external carotid artery: No occlusion or stenosis of the origin. Left common carotid artery: No stenosis. No dissection or occlusion. Left internal carotid artery: No stenosis of the extracranial segment. No dissection or occlusion. Left external carotid artery: No occlusion or stenosis of the origin. Right vertebral artery: No stenosis. No dissection or occlusion. Left vertebral artery: No stenosis. No dissection or occlusion. Soft tissues: Normal. No significant soft tissue swelling. Bones/joints: No acute fracture. IMPRESSION: No stenosis or occlusion. REFERENCES: NASCET CRITERIA. The degree of stenosis in the cervical segment of the internal carotid artery is based on NASCET criteria. Normal is no stenosis. Mild is less than 50% stenosis. Moderate is 50-69% stenosis. Severe is 70% to 99% stenosis. Total occlusion is no detectable patent lumen.
--- NOTE | 2025-06-17 18:34 | HMH.EDGENADL ---
Discharge Plan Disposition Patient Disposition: Home, Self-Care Condition: Good Prescriptions Prescriptions: New erythromycin 5 mg/gram (0.5 %) ointment 1 applic ophthalmic (eye) BID Qty: 3.5 0RF No Action gabapentin 100 mg capsule 100 mg PO HS PRN (Reason: .) budesonide-formoterol [Breyna] 160-4.5 mcg/actuation HFA aerosol inhaler 2 puff inhalation Patient Comments: INHALE 2 PUFFS BY MOUTH 2 TIMES A DAY alendronate 35 mg tablet 25 mg PO DAILY Patient Comments: TAKE 1 TABLET BY MOUTH ONCE WEEKLY ON SAME DAY EACH WEEK albuterol sulfate 90 mcg/actuation HFA aerosol inhaler 2 inh inhalation QID PRN (Reason: shortness of breath or wheezing) 90 Days Qty: 8.5 2RF montelukast 10 mg tablet 10 mg PO QPM 90 Days Qty: 90 2RF spironolactone 25 mg tablet 25 mg PO DAILY Patient Comments: TAKE 1 TABLET BY MOUTH DAILY Spiriva Respimat 2.5 mcg/actuation mist 2 inh inhalation DAILY 90 Days Qty: 4 3RF levalbuterol HCl 0.63 mg/3 mL solution for nebulization 0.63 mg inhalation Q6H PRN (Reason: shortness of breath or wheezing) Qty: 180 3RF vortioxetine [Trintellix] 20 mg tablet 20 mg PO ONCE atorvastatin [Lipitor] 40 mg tablet 40 mg PO DAILY Qty: 90 famotidine [Pepcid] 20 mg tablet 20 mg PO BID Patient Comments: TAKE 1 TABLET BY MOUTH TWICE DAILY hydroxyzine pamoate [Vistaril] 25 mg capsule 25 mg PO QHS PRN (Reason: bp) Xarelto 20 mg tablet 20 mg PO DAILY Qty: 90 3RF Rx Instructions: must administer with evening meal carvedilol 3.125 mg tablet 3.125 mg PO BID Qty: 60 2RF Rx Instructions: must administer with a meal/food Entresto 24-26 mg tablet See Rx Instructions .ROUTE .COMPLEX Qty: 180 3RF Dose Instruction: TAKE 1 TABLET TWICE A DAY Rx Instructions: TAKE 1 TABLET TWICE A DAY Jardiance 10 mg tablet See Rx Instructions .ROUTE .COMPLEX Qty: 90 3RF Dose Instruction: TAKE 1 TABLET DAILY Rx Instructions: TAKE 1 TABLET DAILY Referrals Follow up/Referrals: Adeel Gomez MD [Primary Care Provider, Internal Medicine] - See instructions Activity Restrictions/Add. Instructions Additional Instructions/Restrictions: Use the erythromycin ointment 4 times a day, to the emergency department for any acute or worsening symptoms. Clinical Impressions Clinical Impression: Abrasion, corneal Print Language Print Language: Mongolian Discharge ED Provider: Kelly Gaines General Adult HPI General Chief complaint: Eye Problems Stated complaint: L Eye; Not sure if something is in it. Time Seen by Provider: 06/17/25 18:34 Mode of Arrival: Ambulatory Source of Information: Patient Description of Symptoms (Recalled from ER Triage Doc. by RN): pt feels she may have something in her left eye or scratched it. been bithering her for a few days History of Present Illness HPI narrative: Patient is a 79-year-old female who presented to the emergency department with left eye pain and redness. Patient states that it has been bothering her for couple days now. Patient has not had any associated drainage. Patient states that her eyelashes commonly go into her eye and have irritated her eyes before. Patient denies any vision changes. Patient does report a headache for the last couple days as well. Patient denies any fevers chills nausea vomiting. Patient denies any abdominal pain or diarrhea. Patient denies any chest pain or shortness of breath. Patient has had previous cataract surgery but denies any other eye issues. Related Data Home Medications ?Medication ?Instructions ?Recorded ?Confirmed vortioxetine 20 mg tablet 20 mg PO ONCE Depression 11/19/17 03/29/25 (Trintellix) atorvastatin 40 mg tablet (Lipitor) 40 mg PO DAILY Cholesterol #90 tabs 05/04/19 03/29/25 famotidine 20 mg tablet (Pepcid) 20 mg PO BID 08/09/23 03/29/25 gabapentin 100 mg capsule 100 mg PO HS PRN . 05/24/24 03/29/25 hydroxyzine pamoate 25 mg capsule 25 mg PO QHS PRN bp 09/08/24 03/29/25 (Vistaril) budesonide-formoterol HFA 160 2 puff inhalation 10/16/24 03/29/25 mcg-4.5 mcg/actuation aerosol inhaler (Breyna) alendronate 35 mg tablet 25 mg PO DAILY 12/14/24 03/29/25 spironolactone 25 mg tablet 25 mg PO DAILY 03/29/25 03/29/25 Previous Rx's ?Medication ?Instructions ?Recorded rivaroxaban 20 mg tablet (Xarelto) 20 mg PO DAILY #90 tabs 08/31/24 albuterol sulfate 90 mcg/actuation 2 inh inhalation QID PRN shortness 12/14/24 aerosol inhaler of breath or wheezing 90 days #8.5 grams montelukast 10 mg tablet 10 mg PO QPM 90 days #90 tabs 12/14/24 carvedilol 3.125 mg tablet 3.125 mg PO BID #60 tabs 12/28/24 sacubitril 24 mg-valsartan 26 mg See Rx Instructions .Route 03/26/25 tablet (Entresto) .COMPLEX #180 tabs levalbuterol HCl 0.63 mg/3 mL 0.63 mg (3 mL) inhalation Q6H PRN 03/29/25 solution for nebulization shortness of breath or wheezing #180 mL tiotropium bromide 2.5 2 inh inhalation DAILY 90 days #4 03/29/25 mcg/actuation mist for inhalation grams (Spiriva Respimat) empagliflozin 10 mg tablet See Rx Instructions .Route 06/13/25 (Jardiance) .COMPLEX #90 tabs erythromycin 5 mg/gram (0.5 %) eye 1 applic ophthalmic (eye) BID #3.5 06/17/25 ointment grams Allergies Allergy/AdvReac Type Severity Reaction Status Date / Time morphine Allergy Mild I-ITCHING Verified 03/29/25 13:23 [facility] Disclaimer: The information contained in this section may have been updated after the patient was seen, as this information can be updated by other users. Medical History Allergic rhinitis Dyspnea on exertion Obstructive lung disease Cough Edema, lower extremity HFrEF (heart failure with reduced ejection fraction) Paroxysmal atrial fibrillation On Xarelto LV dysfunction HFrEF (heart failure with reduced ejection fraction) Obstructive sleep apnea She has a long-standing history of obstructive sleep apnea. She has been doing well on CPAP with full facemask. She uses CPAP 7-8 hours per night with control of symptoms. Most recent PSG 07/02/2024: Technically limited study due to poor sleep efficiency, total sleep time 221.5 minutes, sleep efficiency: 57%). AHI during REM 10 events per hour. Advised to continue CPAP treatment. Carotid arterial disease History of CVA (cerebrovascular accident) Suspected cardioembolic. S/P PFO closing PFO (patent foramen ovale) S/P closing Dyspnea Cardiomyopathy Angina pectoris RLQ abdominal pain Pelvic pain in female Dyspareunia in female Vaginal atrophy Stroke CVA (cerebral vascular accident) Surgical History Hx of cataract removal with insertion of prosthetic lens History of back surgery History of cholecystectomy Family History Other Cancer Social History Smoking Status: Never smoker alcohol intake: never substance use type: denies use current occupational status: retired Travel in the last 8 weeks?: Inside the [facility] household members: spouse housing: house current occupational exposures/hazards: Yes caffeine: No Have you lived/traveled outside [place] in past 30 days?: No Contact w/someone who lives/traveled outside [place] past 30 days?: No Exposure to someone with infectious disease in past 14 days?: No Do you have a fever (greater than 100.4 F or 38 C)?: No Have you tested positive for COVID-19?: No Exposed to someone with COVID-19 in past 14 days?: No Do you have a sore throat?: No Do you have a cough?: No Do you have any weakness?: No Do you have any diarrhea?: No Are you experiencing any unusual bleeding?: No Do you have any muscle aches/pain?: No Do you have any abdominal pain?: No Are you experiencing loss of taste or smell?: No Other Medical History Have you received the Flu Vaccine for this season: Yes Have you received the Pneumonia Vaccine: Yes ROS Obtained: Yes All systems reviewed & no additional complaints except as documented and Yes Systems reviewed as appropriate & no additional complaints except as documented Physical Exam General General appearance: alert and in no apparent distress Head Head exam: atraumatic, normocephalic and normal inspection Eye Eye exam: Present normal appearance, PERRL, EOMI and other (mild scleral redness L eye, no drainage, IOP 14, fluorescein exam with corneal abrasion ); Absent scleral icterus ENT ENT exam: Present normal exam and normal external ear exam Neck Neck exam: Present normal inspection and full ROM Chest Chest inspection: Present normal inspection and symmetric chest wall rise Respiratory Respiratory exam: Present normal lung sounds bilaterally; Absent respiratory distress or wheezes Cardiovascular Cardiovascular exam: Present regular rate, normal rhythm and normal heart sounds Abdominal Exam Abdominal exam: Present soft and distention; Absent tenderness, guarding or rebound Extremities Exam Extremities exam: Present normal inspection and full ROM Back Exam Back exam: Present normal inspection and full ROM Neurological Exam Neurological exam: Present alert and oriented X3 Psychiatric Psychiatric exam: Present normal affect and normal mood Skin Skin exam: Present warm and dry Medical Decision Making Medical Records Medical records reviewed: Yes I reviewed the patient's medical records. Screening: Per USPSTF and CDC recommendations, given the prevalence of disease in our region, it is our hospital?s policy to screen for HIV and viral Hepatitis for all patients aged 18 and over and those with ongoing risk factors. Aime Inquiry Pt receiving controlled substance: No Vital Signs: 06/17/25 18:11 06/17/25 19:16 06/17/25 19:31 Temperature 97.9 F Temperature Source Oral Pulse Rate 67 65 Pulse Rate [Right] 70 Respiratory Rate 18 Blood Pressure 117/72 110/65 Blood Pressure [Right Arm] 147/71 H Blood Pressure Mean Blood Pressure Mean [Right Arm] 96 Blood Pressure Source Blood Pressure Position 02 Sat by Pulse Oximetry 98 95 96 Oxygen Delivery Method Room Air 06/17/25 20:30 06/17/25 21:00 06/17/25 21:52 Temperature 98 F Temperature Source Temporal Artery Scan Pulse Rate 64 60 87 Pulse Rate [Right] Respiratory Rate 16 16 Blood Pressure 116/72 97/57 L 116/72 Blood Pressure [Right Arm] Blood Pressure Mean 86 70 Blood Pressure Mean [Right Arm] Blood Pressure Source Automatic Cuff Blood Pressure Position Sitting 02 Sat by Pulse Oximetry 97 97 Oxygen Delivery Method Room Air Lab Data Lab results reviewed: Yes I reviewed the patient's lab results. Lab Results 06/17/25 18:55: WBC 6.9, RBC 4.67, Hgb 14.2, Hct 42.0, MCV 89.9, MCH 30.4, MCHC 33.8, RDW 11.9, Plt Count 293, MPV 9.7, Neut % (Auto) 61.7, Lymph % (Auto) 23.8, Roosevelt % (Auto) 9.9 H, Eos % (Auto) 2.9, Baso % (Auto) 1.3, Neut # (Auto) 4.2, Lymph # (Auto) 1.6, Roosevelt # (Auto) 0.7, Eos # (Auto) 0.2, Baso # (Auto) 0.1, PT 11.0, INR 0.99, Sodium 140, Potassium 3.8, Chloride 104, Carbon Dioxide 27, Anion Gap 12.8, BUN 23 H, Creatinine 0.80, Estimated Creat Clear 48, Estimated GFR 70, Est GFR ( Amer) 84, Glucose 92, Calcium 9.1, Total Bilirubin 0.6, AST 30, ALT 20, Alkaline Phosphatase 63, Total Protein 7.2, Albumin 4.3, Globulin 2.9, Albumin/Globulin Ratio 1.5 06/17/25 18:55 06/17/25 18:55 Orders (Tests/Meds): ED MEDICATIONS Discontinued Medications Generic Name Dose Route Start Last Admin Trade Name Jose Miguel PRN Reason Stop Dose Admin Acetaminophen 1,000 mg 06/17/25 18:34 06/17/25 19:03 Acetaminophen 500mg Tab PO 06/17/25 18:35 1,000 mg ONCE ONE Administration Diphenhydramine HCl 12.5 mg 06/17/25 18:34 06/17/25 19:02 Diphenhydramine 50mg/Ml Vial IV 06/17/25 18:35 12.5 mg ONCE ONE Administration Erythromycin 0.5 gm 06/17/25 21:43 06/17/25 21:51 Erythromycin Base 1 Gm Oint...G. OP 06/17/25 21:44 0.5 gm ONCE ONE Administration Iopamidol 80 ml 06/17/25 20:01 06/17/25 20:03 Iopamidol-370 (76%);100ml Bottle IV 06/17/25 20:02 80 ml ONCE ONE Administration Prochlorperazine Edisylate 5 mg 06/17/25 18:34 06/17/25 19:03 Prochlorperazine 10mg/2ml Vial IV 06/17/25 18:35 5 mg ONCE ONE Administration Sodium Chloride 40 ml 06/17/25 20:01 06/17/25 20:03 0.9 % Sodium Chloride 50 Ml Vial IV 06/17/25 20:02 40 ml ONCE ONE Administration Sodium Chloride 10 ml 06/17/25 20:01 06/17/25 20:03 Sodium Chloride 0.9% 10ml Syr (Rad Only) IV 07/17/25 20:00 10 ml NEEDED PRN Administration Maintain IV Site ORDERS Category Date Time Status CT angio head Stat Cat Scan 06/17/25 18:[address] angio neck Stat Cat Scan 06/17/25 18:[address] head/brain wo con Stat Cat Scan 06/17/25 18:34 Completed CBC w/Auto Diff [Complete Blood Count Auto Diff] Stat Lab 06/17/25 18:55 Completed CMP [Comprehensive Metabolic Panel] Stat Lab 06/17/25 18:55 Completed PT INR [Prothrombin Time INR] Stat Lab 06/17/25 18:55 Completed Medical Decision Narrative: Patient is a 79-year-old female with a past medical history that is unremarkable who presented to the emergency department with left eye pain. Patient with no vision changes but does report a mild headache. On arrival, patient was hemodynamically stable with unremarkable vital signs. Differential includes but not limited to: Corneal abrasion, acute glaucoma, intracranial hemorrhage, intracranial ischemia, tension headache, migraine headache, amongst others. Patient's labs were reviewed and interpreted by myself: CBC showed no leukocytosis, hemoglobin was stable. INR was normal. CMP was unremarkable. CT head, CTA head and neck were reviewed and interpreted by myself and per radiology had no acute findings. Patient was given a migraine cocktail and patient's headache significantly improved in the emergency department. Patient's intraocular pressures were normal therefore no concern for acute glaucoma at this time. Fluorescein exam was performed which showed corneal abrasion. At this time I felt the patient was appropriate for discharge home. Patient was given erythromycin ointment for her corneal abrasion the patient was discharged home in stable condition return precautions were discussed. Critical Care Critical Care Time Critical Care Time: No
[2025-06-17] MEDS: ACETAMINOPHEN 500MG TAB 1000 MG PO (19:03)
[2025-06-17] MEDS: PROCHLORPERAZINE 10MG/2ML VIAL 5 MG IV (19:03)
[2025-06-17 19:05] LABS: Hematocrit 42.0 % (37.0-47.0); Hemoglobin 14.2 g/dL (12.2-16.2); Immature Granulocytes % 0.4 %; Mean Corpuscular HGB Conc 33.8 g/dL (31.8-35.4); Mean Corpuscular Hemoglobin 30.4 pg (27.0-31.2); Mean Corpuscular Volume 89.9 fl (81-99); Nucleated Red Blood Cells % 0 %; Platelet Count 293 K/mm3 (142-424); Red Blood Count 4.67 M/mm3 (4.20-5.40); Red Cell Distribution Width-SD 38.9 fL; White Blood Count 6.9 K/mm3 (4.8-10.8)
[2025-06-17 19:16] VITALS: BP 117/72; PULSE 67; O2SAT 95
[2025-06-17 19:31] VITALS: BP 110/65; PULSE 65; O2SAT 96
[2025-06-17 19:36] LABS: Chloride 104 mmol/L (98-107)
[2025-06-17 19:37] LABS: Albumin Level 4.3 g/dl (3.5-5.0); Potassium 3.8 mmoL/L (3.5-5.1); Sodium 140 mmol/L (136-145)
[2025-06-17 19:40] LABS: Alanine Aminotransferase 20 U/L (12-78); Albumin/Globulin Ratio 1.5 (1.1-1.8); Alkaline Phosphatase 63 U/L (38-126); Anion Gap 12.8 mEq/L (5-15); Aspartate Amino Transferase 30 U/L (14-36); Bilirubin,Total 0.6 mg/dl (0.2-1.3); Blood Urea Nitrogen 23 mg/dl (7-17); Calcium 9.1 mg/dl (8.4-10.2); Carbon Dioxide 27 mmol/L (22.0-30.0); Creatinine Clearance Estimated 48 mL/min (50-200); Creatinine,Serum 0.80 mg/dl (0.52-1.04); Estimated Glomerular Filt Rate 70 ml/min (>60); GFR (African American) 84 ML/MIN (>60); Globulin 2.9 g/dL (1.3-3.2); Glucose 92 mg/dl (74-100); Total Protein,Serum 7.2 g/dl (6.3-8.2)
[2025-06-17 19:41] LABS: INR 0.99 (0.9-1.1); Prothrombin Time 11.0 seconds (10.1-12.5)
[2025-06-17] MEDS: SODIUM CHLORIDE 0.9% 10ML SYR (RAD ONLY) 10 ML IV (20:03)
[2025-06-17] MEDS: 0.9 % SODIUM CHLORIDE 50 ML VIAL 40 ML IV (20:03)
[2025-06-17] MEDS: IOPAMIDOL-370 (76%);100ML BOTTLE 80 ML IV (20:03)
[2025-06-17 20:30] VITALS: BP 116/72; PULSE 64; RESP 16; O2SAT 97
[2025-06-17 21:00] VITALS: BP 97/57; PULSE 60; O2SAT 97
--- NOTE | 2025-06-17 21:42 | PC.NURSE ---
Pt advised me she needed to leave to go home. CTA of head just came back awating CT neck. Dr Gaines informed
[2025-06-17] MEDS: ERYTHROMYCIN BASE 1 GM OINT...G. 0.5 GM OP (21:51)
[2025-06-17 21:52] VITALS: BP 116/72; PULSE 87; RESP 16; TEMP 36.6; O2SAT 98
== END 2025-06-17 21:54 | disposition home or self-care (01) ==
PROVIDERS: Emergency Provider Student in an Organized Health Care Education/Training Program; PCP Internal Medicine Adolescent Medicine
DX: S05.02XA Injury of conjunctiva and corneal abrasion without foreign body, left eye, initial encounter (principal); R51.9 Headache, unspecified; H57.12 Ocular pain, left eye; X58.XXXA Exposure to other specified factors, initial encounter
CPT/HCPCS: 70450; 70496; 70498; 80053; 85025; 85610; 96374; 96375; 99283; 99285; J0780; J1200; Q9967